=== PATIENT | male | born 1990 | race Caucasian/White ===

== ENCOUNTER 2020-09-24 19:38 | Emergency (ER) | payer OTHER, SELFPAY ==
[2020-09-24 19:42] VITALS: BP 143/96; PULSE 97; RESP 18; TEMP 36.7; O2SAT 98; BMI 43.2
--- NOTE | 2020-09-24 19:46 | PC.NURSE ---
DR MARTÍNEZ AND ISAURO WHITE AT BEDSIDE TO EVAL PATIENT.
--- NOTE | 2020-09-24 20:21 | XR_ITS ---
EXAMINATION: XR FOREARM, RIGHT XR WRIST, RIGHT CLINICAL INFORMATION: Fall. COMPARISON: None TECHNIQUE: AP and lateral views of the right forearm. AP, oblique, lateral, and scaphoid views of the right wrist. FINDINGS: Right forearm: No fracture or dislocation. Mild joint space narrowing with small marginal osteophytes at the elbow. No osseous erosion. No abnormal soft tissue calcification. Right wrist: No acute fracture or dislocation. Normal carpal alignment. No joint space narrowing or marginal osteophytes. No osseous erosion. No abnormal soft tissue calcification. XR/XR wrist RT min 3V IMPRESSION: Right forearm: No acute fracture. 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 Right wrist: No acute fracture or dislocation.
--- NOTE | 2020-09-24 20:21 | XR_ITS ---
EXAMINATION: XR RIBS, LEFT CLINICAL INFORMATION: Fall. COMPARISON: Most recent chest radiograph dated 08/17/2019. TECHNIQUE: PA view the chest as well as 3 views of the left ribs. FINDINGS: Lungs are clear. No consolidation, pneumothorax, or pleural effusion. The cardiomediastinal silhouette and pulmonary vasculature are normal. Osseous structures are unremarkable. Ribs are intact. No fractures are identified. XR/XR ribs LT min 3V w CXR1V IMPRESSION: No displaced fracture.
--- NOTE | 2020-09-24 20:21 | XR_ITS ---
EXAMINATION: XR FOREARM, RIGHT XR WRIST, RIGHT CLINICAL INFORMATION: Fall. COMPARISON: None TECHNIQUE: AP and lateral views of the right forearm. AP, oblique, lateral, and scaphoid views of the right wrist. FINDINGS: Right forearm: No fracture or dislocation. Mild joint space narrowing with small marginal osteophytes at the elbow. No osseous erosion. No abnormal soft tissue calcification. Right wrist: No acute fracture or dislocation. Normal carpal alignment. No joint space narrowing or marginal osteophytes. No osseous erosion. No abnormal soft tissue calcification. XR/XR forearm RT 2V IMPRESSION: Right forearm: No acute fracture. 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 Right wrist: No acute fracture or dislocation.
--- NOTE | 2020-09-24 21:11 | ED.FALL ---
HPI - Fall General Chief Complaint: Fall Stated Complaint: FALL Time Seen by Provider: 09/24/20 19:44 Source: patient Mode of arrival: ambulatory History of Present Illness HPI Narrative: 30-year-old male presenting to ED complaining of left-sided rib, right forearm, and right wrist pain s/p mechanical fall at [employer]. Reports was in the aisle and foot got caught in metal and fell on left side. Denies symptoms prior to fall. Denies head trauma or LOC, has been ambulatory since incident. Denies was numbness, tingling, headache, vision changes, CP/ SOB, urinary incontinence or retention Related Data Previous Rx's Medication Instructions Recorded cyclobenzaprine 5 mg PO Q8H PRN 5 Days #14 tab 09/24/20 lidocaine [Lidoderm] 1 patch TOPICAL DAILY PRN #30 ea 09/24/20 MDD remove after 12 hours Allergies Allergy/AdvReac Type Severity Reaction Status Date / Time acetaminophen [From TYLENOL] Allergy Unknown SWELLING Verified 09/24/20 19:56 aspirin [ASPIRIN] Allergy Unknown RASH Verified 09/24/20 19:56 ibuprofen [From MOTRIN] Allergy Unknown SWELLING Verified 09/24/20 19:56 SEAFOOD Allergy Unknown ANAPHYLAXIS Uncoded 09/24/20 19:41 Review of Systems Review of Systems: Constitutional: No Weight loss, No Fever, No Chills Cardiovascular: No Chest Pain, No SOB Respiratory: No Cough, +rib pain Gastrointestinal: No Nausea, No Vomiting, No Abdominal pain Genitourinary:, No Dysuria, No Urinary Incontinence, +L Flank Pain Musculoskeletal: +joint pain, No Myalgias, No Joint Swelling Skin: No Skin Lesions, No rash Neuro: No Weakness, No Numbness, No Paresthesias Yes all other systems are reviewed and are negative [facility] Past Medical History Attestation statement: The following information was validated with the patient. Medical History (Updated 09/24/20 @ 21:12 by ISAURO Castro) Asthma HIV (human immunodeficiency virus infection) Social History Social History Advance Directives: No Advance Directives Information Provided: Yes Physical Exam Vital Signs: Vital Signs: Vital Signs Temp Pulse Resp BP Pulse Ox 09/24/20 19:42 98.0 F 97 18 143/96 H 98 Body Mass Index 43.2 Const: General: cooperative and healthy appearing Orientation/consciousness: patient oriented x3 Limitations: no limitations HENMT: Head: Yes normal to inspection Ears: hearing grossly normal bilaterally General nose exam: Normal external nose present Face and sinus: Yes normal facial exam Eyes: General: appearance normal, both eyes and all related structures EOM: EOMs intact bilaterally Neck: Other: no midline cervical spinous tenderness Neck: Yes normal visual inspection, Yes full ROM and Yes no meningeal signs Chest: Chest palpation & inspection: normal inspection of the chest, no crepitus and tenderness (L lower anterior and posterior ribs) rib Resp: Effort & Inspection: normal respiratory effort Cardio: Rate: regular rate GI: Inspection: Yes normal to inspection Palpation (GI): Soft to palpation, nontender, no guarding and not rigid Back/Spine/Pelvis: Other: no midline thoracic/ lumbar spinous tenderness. pelvis stable/nontender Skin: Rashes: no rashes Wounds: no wounds Neuro: General: patient oriented x3 and no meningeal signs Gait exam (Neuro): Normal gait present Extrem: Other: +ttp to right forearm and wrist > ulnar aspect. No snuffbox tenderness. No deformities/erythema or ecchymosis. FROM & NV Intact General: Yes normal to inspection Course Course Course Narrative: - x-rays unremarkable Discharge Plan Discharge Clinical Impression: Pain in rib, Wrist pain, acute, Fall Patient Disposition: Home, Self-Care Additional Instructions: your x-rays were unremarkable today in the ED Flexeril as a muscle relaxer, take at night as makes you drowsy, do not drive, drink alcohol, or operate machinery while taking it Lidoderm patches or numbing patches, apply to painful area Apply ice tonight, then likely he will be more beneficial for you Follow-up with her primary care doctor as needed If pain persists or worsens/ becomes unbearable return to the ED Prescriptions: New lidocaine [Lidoderm] 5 % adhesive patch,medicated 1 patch topical DAILY MDD remove after 12 hours PRN (Reason: pain) Qty: 30 RF: 0 cyclobenzaprine 5 mg tablet 5 mg PO Q8H PRN (Reason: pain (scale score 7-10)) 5 Days Qty: 14 RF: 0 Referrals: Ti Guthrie MD [Primary Care Provider] - 2 days (your PCP)
[2020-09-24] MEDS: Lidocaine 4 % Patch ADH..PATCH 1 PATCH TRANSDERMA (21:21)
[2020-09-24] MEDS: Cyclobenzaprine HCl 5 MG TABLET PO (21:21)
== END 2020-09-24 21:29 | disposition home or self-care (01) ==
PROVIDERS: Emergency Provider Internal Medicine; PCP Internal Medicine
DX: S69.91XA Unspecified injury of right wrist, hand and finger(s), initial encounter (principal); R07.81 Pleurodynia; M79.631 Pain in right forearm; M25.531 Pain in right wrist; W01.0XXA Fall on same level from slipping, tripping and stumbling without subsequent striking against object, initial encounter; Y93.01 Activity, walking, marching and hiking; Y92.512 Supermarket, store or market as the place of occurrence of the external cause; Y99.9 Unspecified external cause status; Z79.899 Other long term (current) drug therapy
CPT/HCPCS: 71101; 73090; 73110; 99284

== ENCOUNTER 2020-12-04 15:42 | Outpatient (REF) | payer OTHER, SELFPAY | END 2020-12-04 15:43 | disposition home or self-care (01) | LOC: HO.LAB 15:42 | PROVIDERS: Visit Provider Internal Medicine | DX: Z20.822 Contact with and (suspected) exposure to COVID-19 (principal) | CPT/HCPCS: 36415; C9803; U0003 ==

== ENCOUNTER 2022-03-29 19:51 | Emergency (ER) | payer OTHER, SELFPAY ==
--- NOTE | ~2022-03-29 | XR_ITS ---
EXAMINATION: XR CHEST CLINICAL INFORMATION: Chest pain COMPARISON: None TECHNIQUE: Frontal view of the chest was obtained. FINDINGS: No significant abnormality is noted involving the heart, lungs, mediastinum, bony thorax or soft tissues. XR/XR chest 1V IMPRESSION: Unremarkable chest examination.
--- NOTE | 2022-03-29 19:53 | ECG_ITS ---
Test Reason : CP Blood Pressure : / mmHG Vent. Rate : 099 BPM Atrial Rate : 099 BPM P-R Int : 178 ms QRS Dur : 092 ms QT Int : 362 ms P-R-T Axes : 042 -32 012 degrees QTc Int : 464 ms Normal sinus rhythm Left axis deviation Possible Anterolateral infarct , age undetermined Abnormal ECG When compared with ECG of 20-JUN-2018 17:31, No significant change was found Referred By: Generic ED Physician Electronically Signed By:Edward Barnhart
[2022-03-29 21:16] VITALS: BP 129/84; PULSE 99; RESP 16; TEMP 37; O2SAT 100; BMI 43.2
[2022-03-29 22:08] LABS: Hemoglobin 13.1 g/dl (14.0-18.0); SCAN SMEAR FLAG 1
[2022-03-29 22:10] LABS: Basophils Percent Auto 0.4 % (0-2); Eosinophils Percent Auto 0.4 % (0-4); Hematocrit 39.6 % (42.0-52.0); Imm Gran Abs Auto 0.01 X10*3/uL (0.00-0.03); Imm Gran Pct Auto 0.4 % (0.0-0.4); Lymphocytes Absolute Auto 1.8 X10*3/uL (1.2-4.9); Lymphocytes Percent Auto 64.3 % (20-40); MANUAL DIFF FLAG SCAN; Mean Corpuscular HGB Conc 33.1 g/dl (31.0-36.0); Mean Corpuscular Volume 87.6 fL (80.0-98.0); Monocytes Absolute Auto 0.2 X10*3/uL (0.1-1.2); Monocytes Percent Auto 5.5 % (2-11); NRBC Pct Auto 0.7 /100WBC (0.0-0.2); Neutrophils Absolute Auto 0.8 x10*3/uL (2.0-8.3); Red Blood Count 4.52 X10*6/uL (4.60-5.80); Red Cell Distribution Width 17.3 % (11.0-16.0); White Blood Count 2.7 X10*3/uL (4.8-10.8)
[2022-03-29 22:22] LABS: Anion Gap 11 (12-20); Blood Urea Nitrogen 11 mg/dL (9-16); Calcium 8.6 mg/dL (8.4-10.2); Carbon Dioxide 21 mmol/L (22-29); Chloride 106 mmol/L (96-108); Creatinine Clr Calc Pharmacy 148.4; Estimated Glomerular Filt Rate > 60; Glucose Random 130 mg/dL (60-115); Potassium 4.3 mmol/L (3.3-5.1); Sodium 134 mmol/L (135-145)
[2022-03-29 22:25] VITALS: BP 151/91; PULSE 85; RESP 20; TEMP 36.9; O2SAT 99
[2022-03-29 22:26] LABS: PLT ABN DIST 1; Platelet Count 69 X10*3/uL (160-400)
[2022-03-29 22:28] LABS: SLIDE REVIEW VERIFIED
[2022-03-29 22:35] LABS: Troponin-I High Sensitivity < 3.5 ng/L (<3.5-35.0)
--- NOTE | 2022-03-29 23:16 | ED_ITS ---
HPI - Chest Pain General Chief Complaint: Chest Pain Stated Complaint: Chest pain Time Seen by Provider: 03/30/22 00:47 Source: patient Mode of arrival: ambulatory Limitations: no limitations History of Present Illness HPI narrative: 32-year-old male presents with several episodes of sharp chest pain while breathing today and increased thirst. MD complaint: chest pain Onset (ago): hour(s) (Several hours prior to arrival) Timing of current episode: episodic and now resolved Prior episodes: No Onset: during rest Pain location: substernal Severity: mild Quality: sharp Relieving factors: nothing Exacerbating factors: nothing Treatment prior to arrival: none Related Data Previous Rx's Medication Instructions Recorded cyclobenzaprine 5 mg tablet 5 mg PO Q8H PRN 5 Days #14 tab 09/24/20 lidocaine 5 % topical patch 1 patch TOPICAL DAILY PRN #30 ea 09/24/20 (Lidoderm) MDD remove after 12 hours Allergies Allergy/AdvReac Type Severity Reaction Status Date / Time acetaminophen [From TYLENOL] Allergy Unknown SWELLING Verified 03/29/22 21:19 aspirin [ASPIRIN] Allergy Unknown RASH Verified 03/29/22 21:19 ibuprofen [From MOTRIN] Allergy Unknown SWELLING Verified 03/29/22 21:19 SEAFOOD Allergy Unknown ANAPHYLAXIS Uncoded 09/24/20 19:41 Review of Systems Review of Systems: Constitutional: No Weight loss, No Fever, No Chills, No Night Sweats, No Fati lucio, No Malaise ENT/Mouth: No Hearing loss, No Ear Pain, No Nasal Congestion, No Sinus Pain, No Hoarseness, No sore throat, No Rhinorrhea, No Swallowing Difficulty Eyes: No Eye Pain, No Swelling, No Redness, No Foreign Body, No Discharge, No Vision Changes Cardiovascular: Positive Chest Pain, no SOB, no Dyspnea on Exertion, No Orthopnea, No Edema, No Palpitations Respiratory: No Cough, No Sputum, No Wheezing, No Smoke Exposure, No Dyspnea Gastrointestinal: No Nausea, No Vomiting, No Diarrhea, No abdominal Pain, No Hematochezia, No Melena Genitourinary: No irregular bleeding, No Dysuria, No Urinary Frequency, No Hematuria, No Urinary Incontinence, No Urgency, No Flank Pain, No Urinary Flow Changes, No Hesitancy Musculoskeletal: No joint pain, No Myalgias, No Joint Swelling Skin: No Skin Lesions, No rash Neuro: No Weakness, No Numbness, No Paresthesias, No Loss of Consciousness, No Dizziness, No Headache Psych: No Anxiety/Panic, No Depression, No SI/HI/AH/VH Heme/Lymph: No Bruising, No Bleeding,No Lymphadenopathy Endocrine: No Polyuria, No Polydipsia, No Temperature Intolerance Yes all other systems are reviewed and are negative [facility], [facility] Past Medical History Attestation statement: The following information was validated with the patient. Source: old records reviewed Medical History Asthma HIV (human immunodeficiency virus infection) Social History Social History Alcohol intake: never Patient Tobacco Use Status: Never used Tobacco Use of substances other than those prescribed or required for medical reasons: Yes Substance Use Type: Marijuana Advance Directives: No Advance Directives Information Provided: Yes Physical Exam Vital Signs: Vital Signs: Last Vital Signs Temp 98.4 F 03/29/22 22:25 Pulse 85 03/29/22 22:25 Resp 20 03/29/22 22:25 BP 151/91 H 03/29/22 22:25 Pulse Ox 99 03/29/22 22:25 BMI result Body Mass Index 43.2 Appearance: Alert. Oriented X3. No acute distress. Eyes: Pupils equal, round and reactive to light. ENT: Pharynx normal. Neck: Normal inspection. Neck supple. CVS: Normal heart rate and rhythm. Pulses normal. Respiratory: No respiratory distress. Breath sounds normal. Abdomen: Soft and nontender. Obese. Skin: Skin warm and dry. Normal skin color. Normal skin turgor. Extremities: No lower extremity edema. Gait well-balanced well coordinated. Neuro: No motor deficit. No sensory deficit. Cranial nerves 2-12 intact. Course Course Course Narrative: 32-year-old male presents with intermittent sharp chest pain on inspiration t hat occurred today. No other history of DVT or coronary artery disease. 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 Labs EKGs completed in the emergency department waiting room. Labs are per his baseline, EKG is normal sinus. 01:48 COVID and influenza are negative. Plan of care is to discharge home with follow-up with primary care physician. Patient verbalized understanding of and agrees to plan of care to discharge home. Verbalized understanding of signs and symptoms indicating need for emergent intervention MDM - Chest Pain Differential Diagnosis Differential diagnosis: Likely fracture of rib, pneumothorax, unstable angina pectoris, atypical chest pain, st elevation myocardial infarction, chest pain and biliary colic Medical Records Data Attestation: I reviewed the patient's medical records. Lab Data Attestation: I reviewed the patient's lab results. Result diagrams: 03/29/22 21:57 03/29/22 21:57 Labs: Lab Results 03/29/22 03/29/22 03/29/22 Range/Units 21:57 21:57 21:57 WBC 2.7 L (4.8-10.8) X10*3/uL RBC 4.52 L (4.60-5.80) X10*6/uL Hgb 13.1 L (14.0-18.0) g/dl Hct 39.6 L (42.0-52.0) % MCV 87.6 (80.0-98.0) fL MCH 29.0 (27.0-33.0) pg MCHC 33.1 (31.0-36.0) g/dl RDW 17.3 H (11.0-16.0) % Plt Count 69 L (160-400) X10*3/uL MPV Not Reportable Immature Gran % (Auto) 0.4 (0.0-0.4) % Neut % (Auto) 29.0 L (45-73) % Lymph % (Auto) 64.3 H (20-40) % [place] % (Auto) 5.5 (2-11) % Eos % (Auto) 0.4 (0-4) % Baso % (Auto) 0.4 (0-2) % Lymph # (Auto) 1.8 (1.2-4.9) X10*3/uL [place] # (Auto) 0.2 (0.1-1.2) X10*3/uL Eos # (Auto) 0.0 (0.0-0.4) X10*3/uL Baso # (Auto) 0.0 (0.0-0.2) X10*3/uL Abs Immat Gran (auto) 0.01 (0.00-0.03) X10*3/uL Absolute Neuts (auto) 0.8 L (2.0-8.3) x10*3/uL Absolute Nucleated RBC 0.020 H (0.0-0.012) X10*3/uL Nucleated RBC % (auto) 0.7 H (0.0-0.2) /100WBC Smear Tech's Comments VERIFIED Sodium 134 L (135-145) mmol/L Potassium 4.3 (3.3-5.1) mmol/L Chloride 106 (96-108) mmol/L Carbon Dioxide 21 L (22-29) mmol/L Anion Gap 11 L (12-20) BUN 11 (9-16) mg/dL Creatinine 0.85 (0.5-1.4) mg/dL Estim Creat Clear Calc 148.4 Estimated GFR > 60 Random Glucose 130 H (60-115) mg/dL Calcium 8.6 (8.4-10.2) mg/dL Troponin I High Sens < 3.5 (<3.5-35.0) ng/L COVID-19 (TREE) (Negative) COVID-19 Clin Com Influenza Type A (OSNYA) (Negative) Influenza Type B (SONYA) (Negative) Influenza A & B Note 03/30/22 03/30/22 Range/Units 00:58 00:58 WBC (4.8-10.8) X10*3/uL RBC (4.60-5.80) X10*6/uL Hgb (14.0-18.0) g/dl Hct (42.0-52.0) % MCV (80.0-98.0) fL MCH (27.0-33.0) pg MCHC (31.0-36.0) g/dl RDW (11.0-16.0) % Plt Count (160-400) X10*3/uL MPV Immature Gran % (Auto) (0.0-0.4) % Neut % (Auto) (45-73) % Lymph % (Auto) (20-40) % [place] % (Auto) (2-11) % Eos % (Auto) (0-4) % Baso % (Auto) (0-2) % Lymph # (Auto) (1.2-4.9) X10*3/uL [place] # (Auto) (0.1-1.2) X10*3/uL Eos # (Auto) (0.0-0.4) X10*3/uL Baso # (Auto) (0.0-0.2) X10*3/uL Abs Immat Gran (auto) (0.00-0.03) X10*3/uL Absolute Neuts (auto) (2.0-8.3) x10*3/uL Absolute Nucleated RBC (0.0-0.012) X10*3/uL Nucleated RBC % (auto) (0.0-0.2) /100WBC Smear Tech's Comments Sodium (135-145) mmol/L Potassium (3.3-5.1) mmol/L Chloride (96-108) mmol/L Carbon Dioxide (22-29) mmol/L Anion Gap (12-20) BUN (9-16) mg/dL Creatinine (0.5-1.4) mg/dL Estim Creat Clear Calc Estimated GFR Random Glucose (60-115) mg/dL Calcium (8.4-10.2) mg/dL Troponin I High Sens (<3.5-35.0) ng/L COVID-19 (TREE) Negative (Negative) COVID-19 Clin Com See Note Influenza Type A (SONYA) Negative (Negative) Influenza Type B (SONYA) Negative (Negative) Influenza A & B Note See Note Imaging Data Chest x-ray: Attestation: I personally reviewed and interpreted this imaging study as follows: Radiologist's impression: EXAMINATION: XR CHEST CLINICAL INFORMATION: Chest pain COMPARISON: None TECHNIQUE: Frontal view of the chest was obtained. FINDINGS: No significant abnormality is noted involving the heart, lungs, mediastinum, bony thorax or soft tissues. XR/XR chest 1V IMPRESSION: Unremarkable chest examination. ? ECG Data ECG #1: Attestation: I personally reviewed and interpreted this ECG as follows: ECG interpretation date: 03/29/22 ECG interpretation time: 20:01 Prior ECG tracings: available for review Interpretation: Vent. rate [address] interval 178 ms QRS duration 92 ms QT/QTc 362/464 ms P-R-T axes 42 -32 12 Normal sinus rhythm Left axis deviation Possible Anterolateral infarct , age undetermined Abnormal ECG When compared with ECG of 20-JUN-2018 17:31, No significant change was found Discharge Plan Discharge Clinical Impression: Chest pain, Costalchondritis Patient Disposition: Home, Self-Care Instructions: Costochondritis (ED), Noncardiac Chest Pain (ED) Additional Instructions: You were evaluated for an episode of sharp chest pain. X-rays negative for acute findings. EKG shows no acute findings. Lab values are your normal baseline values. Please follow-up with primary care physician. Thank you for choosing this emergency department for evaluation. Please follow-up with primary care physician as needed. Return to the emergency department for any new, concerning, or worsening symptoms. Prescriptions: No Action lidocaine [Lidoderm] 5 % adhesive patch,medicated 1 patch topical DAILY MDD remove after 12 hours PRN (Reason: pain) Qty: 30 0RF Rx Instructions: leave on most painful area for up to 12 hrs cyclobenzaprine 5 mg tablet 5 mg PO Q8H PRN (Reason: pain (scale score 7-10)) 5 Days Qty: 14 0RF Referrals: Ti Guthrie MD [Primary Care Provider] -
[2022-03-30 01:35] LABS: COVID-19 Test Negative (Negative); IDNOW Serial# 16C4AD1C; Influenza A Negative (Negative); Influenza B2 Negative (Negative)
[2022-03-30] MEDS: Albuterol Sulfate 90 MCG 8 GM INHALER 2 PUFF INHALE (01:55)
[2022-03-30 02:23] VITALS: BP 123/72; PULSE 84; RESP 16; TEMP 37; O2SAT 99
[2022-03-30] MEDS: oxyCODONE HCl Immed Release 5 MG TABLET PO (02:43)
== END 2022-03-30 02:44 | disposition home or self-care (01) ==
PROVIDERS: Nurse Practitioner Family; Emergency Provider Emergency Medicine Emergency Medical Services; PCP Internal Medicine
DX: M94.0 Chondrocostal junction syndrome [Tietze] (principal); J45.909 Unspecified asthma, uncomplicated; Z21 Asymptomatic human immunodeficiency virus [HIV] infection status
CPT/HCPCS: 36415; 71045; 80048; 84484; 85025; 87502; 87635; 93005; 99284; 99285

== ENCOUNTER 2022-06-20 18:34 | Emergency (ER) | payer OTHER, SELFPAY ==
--- NOTE | 2022-06-20 18:56 | ECG_ITS ---
Test Reason : CHEST PAIN Blood Pressure : / mmHG Vent. Rate : 092 BPM Atrial Rate : 092 BPM P-R Int : 178 ms QRS Dur : 090 ms QT Int : 370 ms P-R-T Axes : 006 -37 002 degrees QTc Int : 457 ms Normal sinus rhythm Left axis deviation Borderline ECG When compared with ECG of 29-MAR-2022 20:01, No significant change was found Referred By: Generic ED Physician Electronically Signed By:YURY STONE
[2022-06-20 20:03] VITALS: BP 148/59; PULSE 88; RESP 18; TEMP 36.6; O2SAT 98; BMI 46.2
--- NOTE | 2022-06-21 01:08 | ED.GENADULT ---
HPI - General Adult General Chief complaint: General Medical Stated complaint: chest pain, diarrhea Time Seen by Provider: 06/21/22 01:08 Source: patient Mode of arrival: ambulatory Limitations: no limitations History of Present Illness HPI narrative: Pain history of constipation noticed bright red blood on the stool when strained also complaining of chronic low back pain no history of trauma. Patient also complaining of rectal pain. No history of hemorrhoids in the past Related Data Previous Rx's Medication Instructions Recorded cyclobenzaprine 5 mg tablet 5 mg PO Q8H PRN pain (scale score 09/24/20 7-10) 5 days #14 tabs lidocaine 5 % topical patch 1 patch topical DAILY PRN pain #30 09/24/20 (Lidoderm) ea hydrocortisone acetate 25 mg 25 mg MS BID #12 ea 06/21/22 rectal suppository (Anusol-HC) polyethylene glycol 3350 17 17 g PO DAILY #510 grams 06/21/22 gram/dose oral powder (Miralax) tramadol 50 mg tablet 50 mg PO Q6H PRN pain #15 tabs 06/21/22 Allergies Allergy/AdvReac Type Severity Reaction Status Date / Time acetaminophen [From TYLENOL] Allergy Unknown SWELLING Verified 03/29/22 21:19 aspirin [ASPIRIN] Allergy Unknown RASH Verified 03/29/22 21:19 ibuprofen [From MOTRIN] Allergy Unknown SWELLING Verified 03/29/22 21:19 SEAFOOD Allergy Unknown ANAPHYLAXIS Uncoded 09/24/20 19:41 Review of Systems Review of Systems: Yes all other systems are reviewed and are negative PMFSH Past Medical History Medical History Asthma HIV (human immunodeficiency virus infection) Social History Social History Alcohol intake: never Patient Tobacco Use Status: Never used Tobacco Substance Use Type: Marijuana Advance Directives: No Advance Directives Information Provided: Yes Physical Exam ED Vital Signs: Vital Signs - 24 hr 06/20/22 20:03 Temperature 97.8 F Pulse Rate 88 Respiratory Rate 18 Blood Pressure 148/59 H Pulse Oximetry 98 Oxygen Delivery Method Room Air BMI result Body Mass Index 46.2 Appearance: Alert. Oriented X3. No acute distress. Eyes: No pallor ENT: Pharynx normal. Oral Mucosa moist Neck: Normal inspection. Neck supple. CVS: Normal heart rate and rhythm. Pulses normal. Respiratory: No respiratory distress. Equal air entry bilateral, Abdomen: Soft and nontender. Bowel sounds are present, no mass palpable, no CVA tenderness Rectal: No external hemorrhoid felt brown stool no blood Skin: Skin warm and dry. Normal skin color. Normal skin turgor. back: Diffuse lower lumbar tenderness no skin changes , patient able to ambulate without any distress SLR negative bilateral Extremities: No lower extremity edema. No calf tenderness Neuro: Oriented X 3. No motor deficit. Discharge Plan Discharge Clinical Impression: Hemorrhoids Patient Disposition: Home, Self-Care Instructions: Hemorrhoids (ED) Additional Instructions: Avoid constipation Suppository twice daily as advised Pain medication for chronic back pain Prescriptions: New tramadol 50 mg tablet 50 mg PO Q6H PRN (Reason: pain) Qty: 15 0RF polyethylene glycol 3350 [Miralax] 17 gram/dose powder 17 g PO DAILY Qty: 510 0RF hydrocortisone acetate [Anusol-HC] 25 mg suppository 25 mg MS BID Qty: 12 0RF No Action lidocaine [Lidoderm] 5 % adhesive patch,medicated 1 patch topical DAILY MDD remove after 12 hours PRN (Reason: pain) Qty: 30 0RF Rx Instructions: leave on most painful area for up to 12 hrs cyclobenzaprine 5 mg tablet 5 mg PO Q8H PRN (Reason: pain (scale score 7-10)) 5 Days Qty: 14 0RF
[2022-06-21] MEDS: traMADoL HCL 50 MG TABLET PO (01:38)
[2022-06-21 01:51] VITALS: BP 136/70; PULSE 82; TEMP 37.1; O2SAT 97
== END 2022-06-21 01:45 | disposition home or self-care (01) ==
PROVIDERS: Emergency Provider Internal Medicine
DX: K64.9 Unspecified hemorrhoids (principal); K59.00 Constipation, unspecified; G89.29 Other chronic pain; M54.50 Low back pain, unspecified; B20 Human immunodeficiency virus [HIV] disease; F12.90 Cannabis use, unspecified, uncomplicated
CPT/HCPCS: 93005; 99283; 99284

== ENCOUNTER 2022-06-29 23:19 | Emergency (ER) | payer OTHER, SELFPAY ==
[2022-06-29 23:22] VITALS: BP 142/79; PULSE 97; RESP 14; TEMP 36.9; O2SAT 98; BMI 41.9
[2022-06-29 23:49] LABS: Hematocrit 37.3 % (42.0-52.0); Imm Gran Abs Auto 0.01 X10*3/uL (0.00-0.03); Mean Corpuscular Volume 87.4 fL (80.0-98.0); PLT ABN DIST 1; Red Blood Count 4.27 X10*6/uL (4.60-5.80); SCAN SMEAR FLAG 1
[2022-06-29 23:51] LABS: Basophils Percent Auto 0.7 % (0-2); Eosinophils Percent Auto 0.3 % (0-4); Hemoglobin 12.5 g/dl (14.0-18.0); Imm Gran Pct Auto 0.3 % (0.0-0.4); Lymphocytes Absolute Auto 1.7 X10*3/uL (1.2-4.9); Lymphocytes Percent Auto 57.8 % (20-40); Mean Corpuscular HGB Conc 33.5 g/dl (31.0-36.0); Mean Corpuscular Hemoglobin 29.3 pg (27.0-33.0); Monocytes Absolute Auto 0.2 X10*3/uL (0.1-1.2); Monocytes Percent Auto 5.6 % (2-11); Neutrophils Percent Auto 35.3 % (45-73); Platelet Count 71 X10*3/uL (160-400); Red Cell Distribution Width 17.3 % (11.0-16.0); White Blood Count 2.9 X10*3/uL (4.8-10.8)
[2022-06-29 23:52] LABS: MANUAL DIFF FLAG NO
[2022-06-30 00:09] VITALS: BP 136/82; PULSE 86; RESP 18; TEMP 37.6; O2SAT 99
[2022-06-30 00:10] LABS: Alanine Aminotransferase 111 U/L (0-40); Albumin Level 3.1 g/dL (3.5-5.0); Alkaline Phosphatase 149 U/L (39-117); Anion Gap 10 (12-20); Aspartate Amino Transferase 210 U/L (5-37); Bilirubin Direct 3.5 mg/dL (0.0-0.5); Bilirubin Total 4.6 mg/dL (0.0-1.0); Blood Urea Nitrogen 9 mg/dL (9-16); Calcium 8.3 mg/dL (8.4-10.2); Carbon Dioxide 24 mmol/L (22-29); Chloride 106 mmol/L (96-108); Creatinine Clr Calc Pharmacy 173.2; Estimated Glomerular Filt Rate > 60; Glucose Random 113 mg/dL (60-115); Lipase 28 U/L (8-78); Potassium 3.9 mmol/L (3.3-5.1); Sodium 136 mmol/L (135-145); Total Protein 8.2 g/dL (6.5-8.0)
[2022-06-30 03:05] LABS: Appearance Urine CLEAR; Color Urine DK YELLOW; Glucose Urine UA NEG (NEG); Leukocyte Esterase Urine NEG (NEG); Nitrite Urine NEG (NEG); Urine Blood NEG (NEG); Urine Ketones 5 MG/DL (NEG); Urine Protein NEG (NEG-TRACE)
--- NOTE | 2022-06-30 03:25 | ED_ITS ---
HPI - Abdominal Pain General Chief Complaint: Abdominal Pain Stated Complaint: blood in stool Time Seen by Provider: 06/30/22 03:11 Source: patient Mode of arrival: ambulatory Limitations: no limitations History of Present Illness HPI narrative: 32-year-old male who presents emergency department for evaluation of lower abdominal pain, constipation and bloody stool. Patient states that he was seen in the emergency department on 06/21/2022 and diagnosed with hemorrhoids and constipation. He was started on MiraLax and he states that this is not improved his symptoms. He states that he feels constipated has to strain to move his bowels. He states that he only has small bowel movements every 3 days. He states that he has noticed dark red blood when he strains at stool. He is also complaining of lower abdominal pain. He points to his left lower quadrant when asked to localize the pain. He states the pain is a pressure-like which is worse when he tries to move his bowels, the pain is 6/10 at its worst. He denied fever, chills, nausea, vomiting. The patient is HIV positive and states that he is compliant with his medications. 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 Related Data Previous Rx's Medication Instructions Recorded cyclobenzaprine 5 mg tablet 5 mg PO Q8H PRN pain (scale score 09/24/20 7-10) 5 days #14 tabs lidocaine 5 % topical patch 1 patch topical DAILY PRN pain #30 09/24/20 (Lidoderm) ea hydrocortisone acetate 25 mg 25 mg TX BEDTIME #12 ea 06/21/22 rectal suppository (Anusol-HC) polyethylene glycol 3350 17 17 g PO DAILY #510 grams 06/21/22 gram/dose oral powder (Miralax) tramadol 50 mg tablet 50 mg PO Q6H PRN pain #15 tabs 06/21/22 docusate sodium 100 mg capsule 100 mg PO BID 7 days #14 caps 06/30/22 (Colace) lactulose 10 gram/15 mL oral 20 g (30 mL) PO BID 7 days #420 mL 06/30/22 solution phenylephrine 0.25 %-cocoa butter 1 supp TX BID 7 days #24 ea 06/30/22 88.44 % rectal suppository (Preparation H(phenyleph,cocoa buttr)) Allergies Allergy/AdvReac Type Severity Reaction Status Date / Time acetaminophen [From TYLENOL] Allergy Unknown SWELLING Verified 03/29/22 21:19 aspirin [ASPIRIN] Allergy Unknown RASH Verified 03/29/22 21:19 ibuprofen [From MOTRIN] Allergy Unknown SWELLING Verified 03/29/22 21:19 SEAFOOD Allergy Unknown ANAPHYLAXIS Uncoded 09/24/20 19:41 Review of Systems Review of Systems Yes all other systems are reviewed and are negative [facility] Past Medical History [facility] Narrative: Social history: The patient denies tobacco use. He states that he occasionally drinks alcohol. He does smoke marijuana. Medical History Asthma HIV (human immunodeficiency virus infection) Social History Social History Alcohol intake: never Patient Tobacco Use Status: Never used Tobacco Substance Use Type: Marijuana Advance Directives: No Advance Directives Information Provided: No Physical Exam ED Vital Signs: Vital Signs - 24 hr 06/29/22 23:22 06/30/22 00:09 Temperature 98.4 F 99.6 F Pulse Rate 97 86 Respiratory Rate 14 18 Blood Pressure 142/79 H 136/82 Pulse Oximetry 98 99 Oxygen Delivery Method Room Air Room Air BMI result Body Mass Index 41.9 Const General: cooperative and no acute distress Orientation/consciousness: oriented to person and oriented to place Limitations: no limitations HENMT Head: Yes normal to inspection, Yes normocephalic and Yes atraumatic Ears: external ears normal General nose exam: Normal external nose present Face and sinus: Yes normal facial exam Mouth: Normal oral and palatal mucosa present Throat: Yes posterior oropharynx normal Eyes General: appearance normal, both eyes and all related structures Pupils: Equal, round and reactive pupils present Neck Neck: Yes normal visual inspection, Yes no lymphadenopathy, Yes trachea midline and Yes supple Chest Chest palpation & inspection: normal inspection of the chest and normal palpation of entire chest wall Resp Effort & Inspection: normal respiratory effort and able to speak in complete sentences Auscultation: clear to auscultation bilaterally Cardio Rate: regular rate Rhythm: regular rhythm Heart sounds: S1 normal heart sound present, S2 normal heart sound present and no murmurs GI Inspection: Yes normal to inspection Palpation (GI): Soft to palpation, nontender and no guarding Auscultation: normal bowel sounds Rectal Exam - Male: Yes deferred (Patient reports that he had significant pain from previous rectal exam and ) and Yes visual inspection normal General: Yes no CVA tenderness Back/Spine/Pelvis Back: no CVA tenderness Skin General skin exam: no rashes or lesions noted Neuro General: oriented to person and oriented to place Cranial nerves: Yes CN's II-XII intact bilaterally and Yes Equal, round and reactive pupils present Cognition (Neuro): normal cognition Motor exam (neuro): 5/5 motor strength present throughout Extrem General: Yes normal to inspection Psych Appearance: grossly normal Speech and movement: Normal speech and movement present Affect: normal affect Attitude: cooperative Thought process: Normal thought process present Thought content: Normal thought content present Course Course Course Narrative: 32-year-old male who presents emergency department for evaluation of abdominal pain, constipation and blood per rectum when he tries to move his bowels. Vital signs were unremarkable. Abdominal exam revealed no tenderness. Patient d eferred a digital exam but on visual inspection there is no significant abnormalities noted, there are no external hemorrhoids, there are no obvious fissures noted. Laboratory evaluation did reveal a pancytopenia which is chronic and most likely consistent with his HIV disease. The patient however does have LFT abnormalities with elevation in his AST and ALT 210 and 149 as well as an elevated total bilirubin of 4.6 and elevated direct bilirubin of 3.5. This time I do not have a clear etiology for these elevations, but the patient should follow-up with his PCP for further testing. At this time he has no abdominal tenderness. At this time I do believe this patient is constipated and I did advise him to stop taking his MiraLax. Patient was started on lactulose twice a day for 1 week, Colace twice a day for 1 week and preparation H suppositories twice a day for 1 week. He is advised to follow-up with his PCP for repeat LFTs and further evaluation. MDM - Abdominal Pain Lab Data Result diagrams: 06/29/22 23:43 06/29/22 23:43 Labs: Lab Results 06/29/22 06/29/22 06/30/22 Range/Units 23:43 23:43 02:44 WBC 2.9 L (4.8-10.8) X10*3/uL RBC 4.27 L (4.60-5.80) X10*6/uL Hgb 12.5 L (14.0-18.0) g/dl Hct 37.3 L (42.0-52.0) % MCV 87.4 (80.0-98.0) fL MCH 29.3 (27.0-33.0) pg MCHC 33.5 (31.0-36.0) g/dl RDW 17.3 H (11.0-16.0) % Plt Count 71 L (160-400) X10*3/uL MPV Not Reportable Immature Gran % (Auto) 0.3 (0.0-0.4) % Neut % (Auto) 35.3 L (45-73) % Lymph % (Auto) 57.8 H (20-40) % [place] % (Auto) 5.6 (2-11) % Eos % (Auto) 0.3 (0-4) % Baso % (Auto) 0.7 (0-2) % Lymph # (Auto) 1.7 (1.2-4.9) X10*3/uL [place] # (Auto) 0.2 (0.1-1.2) X10*3/uL Eos # (Auto) 0.0 (0.0-0.4) X10*3/uL Baso # (Auto) 0.0 (0.0-0.2) X10*3/uL Abs Immat Gran (auto) 0.01 (0.00-0.03) X10*3/uL Absolute Neuts (auto) 1.0 L (2.0-8.3) x10*3/uL Absolute Nucleated RBC 0.000 (0.0-0.012) X10*3/uL Nucleated RBC % (auto) 0.0 (0.0-0.2) /100WBC Sodium 136 (135-145) mmol/L Potassium 3.9 (3.3-5.1) mmol/L Chloride 106 (96-108) mmol/L Carbon Dioxide 24 (22-29) mmol/L Anion Gap 10 L (12-20) BUN 9 (9-16) mg/dL Creatinine 0.74 (0.5-1.4) mg/dL Estim Creat Clear Calc 173.2 Estimated GFR > 60 Random Glucose 113 (60-115) mg/dL Calcium 8.3 L (8.4-10.2) mg/dL Total Bilirubin 4.6 H (0.0-1.0) mg/dL Direct Bilirubin 3.5 H (0.0-0.5) mg/dL AST 210 H (5-37) U/L ALT 111 H (0-40) U/L Alkaline Phosphatase 149 H (39-117) U/L Total Protein 8.2 H (6.5-8.0) g/dL Albumin 3.1 L (3.5-5.0) g/dL Lipase 28 (8-78) U/L Urine Color DK YELLOW Urine Appearance CLEAR Urine pH 7.0 (5.0-8.0) Ur Specific [place] 1.020 (1.005-1.025) Urine Protein NEG (NEG-TRACE) MG/DL Urine Glucose (UA) NEG (NEG) MG/DL Urine Ketones 5 (NEG) MG/DL Urine Blood NEG (NEG) Urine Nitrite NEG (NEG) Ur Leukocyte Esterase NEG (NEG) Discharge Plan Discharge Clinical Impression: Constipation, Acute lower gastrointestinal bleeding, Abnormal LFTs (liver function tests) Patient Disposition: Home, Self-Care Instructions: Constipation (ED) Additional Instructions: Stop taking the MiraLax. Take lactulose 30 mL twice a day for 7 days. This medication should help with your constipation, if you developed diarrhea then stop this medication. Take Colace stool softener 1 pill twice a day for 7 days. Use the preparation H suppositories, 1 suppository in your rectum twice a day for 7 days. Your liver function tests were elevated compared to your previous studies. You should discuss this with your primary care provider and you should get further testing as an outpatient and repeat testing as well. Follow-up with your doctor in 2 days. Please return to the emergency department if your symptoms get worse or if you develop any symptoms that are concerning to you. Liver function test abnormalities: Total bilirubin 4.6, direct bilirubin 3.5, AST 210, ALT 111, alk-phos 149 Prescriptions: New lactulose 10 gram/15 mL solution 20 g PO BID 7 Days Qty: 420 0RF docusate sodium [Colace] 100 mg capsule 100 mg PO BID 7 Days Qty: 14 0RF Preparation H(pe,cb) 0.25-88.44 % suppository 1 supp [place] BID 7 Days Qty: 24 0RF No Action lidocaine [Lidoderm] 5 % adhesive patch,medicated 1 patch topical DAILY MDD remove after 12 hours PRN (Reason: pain) Qty: 30 0RF Rx Instructions: leave on most painful area for up to 12 hrs cyclobenzaprine 5 mg tablet 5 mg PO Q8H PRN (Reason: pain (scale score 7-10)) 5 Days Qty: 14 0RF tramadol 50 mg tablet 50 mg PO Q6H PRN (Reason: pain) Qty: 15 0RF hydrocortisone acetate [Anusol-HC] 25 mg suppository 25 mg TX BEDTIME Qty: 12 0RF polyethylene glycol 3350 [Miralax] 17 gram/dose powder 17 g PO DAILY Qty: 510 0RF
== END 2022-06-30 04:07 | disposition home or self-care (01) ==
PROVIDERS: Emergency Provider Emergency Medicine Emergency Medical Services
DX: K59.00 Constipation, unspecified (principal); K92.2 Gastrointestinal hemorrhage, unspecified; R79.89 Other specified abnormal findings of blood chemistry; B20 Human immunodeficiency virus [HIV] disease; F12.90 Cannabis use, unspecified, uncomplicated
CPT/HCPCS: 36415; 80053; 81003; 82248; 83690; 85025; 99283; 99284

== ENCOUNTER 2022-07-02 15:37 | Emergency (ER) | payer MEDICAID, SELFPAY ==
[2022-07-02 17:10] VITALS: BP 127/79; PULSE 84; RESP 16; TEMP 36.6; O2SAT 98; BMI 40.4
[2022-07-02 17:37] LABS: MANUAL DIFF FLAG NO
[2022-07-02 17:38] LABS: Monocytes Absolute Auto 0.3 X10*3/uL (0.1-1.2); SCAN SMEAR FLAG 1
[2022-07-02 17:40] LABS: Basophils Percent Auto 0.5 % (0-2); Eosinophils Percent Auto 0.5 % (0-4); Hematocrit 37.6 % (42.0-52.0); Hemoglobin 12.8 g/dl (14.0-18.0); Imm Gran Abs Auto 0.01 X10*3/uL (0.00-0.03); Imm Gran Pct Auto 0.3 % (0.0-0.4); Lymphocytes Absolute Auto 2.2 X10*3/uL (1.2-4.9); Lymphocytes Percent Auto 60.4 % (20-40); Mean Corpuscular Hemoglobin 30.3 pg (27.0-33.0); Mean Corpuscular Volume 89.1 fL (80.0-98.0); Mean Platelet Volume 13.4 fL (9.4-12.4); Monocytes Percent Auto 7.4 % (2-11); Neutrophils Absolute Auto 1.1 x10*3/uL (2.0-8.3); Neutrophils Percent Auto 30.9 % (45-73); Red Blood Count 4.22 X10*6/uL (4.60-5.80); White Blood Count 3.6 X10*3/uL (4.8-10.8)
[2022-07-02 17:49] LABS: PLT ABN DIST 1; Platelet Count 80 X10*3/uL (160-400)
[2022-07-02 18:02] LABS: Anion Gap 13 (12-20); Blood Urea Nitrogen 9 mg/dL (9-16); Calcium 8.3 mg/dL (8.4-10.2); Carbon Dioxide 21 mmol/L (22-29); Chloride 104 mmol/L (96-108); Creatinine Clr Calc Pharmacy 202.4; Estimated Glomerular Filt Rate > 60; Glucose Random 93 mg/dL (60-115); Potassium 3.9 mmol/L (3.3-5.1); Sodium 134 mmol/L (135-145)
[2022-07-02 21:25] VITALS: BP 126/69; PULSE 69; RESP 16; TEMP 36.7; O2SAT 98
--- NOTE | 2022-07-02 22:01 | ED_ITS ---
HPI - General Adult General Chief complaint: General Medical Stated complaint: Constipated Rectal Bleed Time Seen by Provider: 07/02/22 22:00 Source: patient Mode of arrival: ambulatory Limitations: no limitations History of Present Illness HPI narrative: Patient presents to the emergency department for evaluation of rectal pain. He states that he has been having ongoing issues for the past 1 and half weeks with constipation, bloody stools, and hemorrhoids. Initially he trialed MiraLax without much improvement. He was seen in the emergency department 2 days ago for the same complaints. He is straining to move his bowels, and he develops a pressure-like pain to the rectum. He denies fevers, chills, abdominal pain, nausea, vomiting, diarrhea. At this time he states he is taking a pill to help included the bathroom but otherwise is not taking anything else. He states that he thinks he was given additional prescriptions but his insurance plan would not cover it. He is attempting to schedule follow-up visit with new primary care provider but has not yet made an appointment. Related Data Previous Rx's Medication Instructions Recorded cyclobenzaprine 5 mg tablet 5 mg PO Q8H PRN pain (scale score 09/24/20 7-10) 5 days #14 tabs lidocaine 5 % topical patch 1 patch topical DAILY PRN pain #30 09/24/20 (Lidoderm) ea hydrocortisone acetate 25 mg 25 mg MD BEDTIME #12 ea 06/21/22 rectal suppository (Anusol-HC) polyethylene glycol 3350 17 17 g PO DAILY #510 grams 06/21/22 gram/dose oral powder (Miralax) tramadol 50 mg tablet 50 mg PO Q6H PRN pain #15 tabs 06/21/22 docusate sodium 100 mg capsule 100 mg PO BID 7 days #14 caps 06/30/22 (Colace) lactulose 10 gram/15 mL oral 20 g (30 mL) PO BID 7 days #420 mL 06/30/22 solution phenylephrine 0.25 %-cocoa butter 1 supp MD BID 7 days #24 ea 06/30/22 88.44 % rectal suppository (Preparation H(phenyleph,cocoa buttr)) hydrocortisone 1 %-pramoxine 1 % 1 appl MD QID PRN hemorrhoids #10 07/02/22 rectal foam grams Allergies Allergy/AdvReac Type Severity Reaction Status Date / Time acetaminophen [From TYLENOL] Allergy Unknown SWELLING Verified 07/02/22 17:10 aspirin [ASPIRIN] Allergy Unknown RASH Verified 03/29/22 21:19 ibuprofen [From MOTRIN] Allergy Unknown SWELLING Verified 03/29/22 21:19 SEAFOOD Allergy Unknown ANAPHYLAXIS Uncoded 09/24/20 19:41 Review of Systems Review of Systems: Constitutional: No weight loss. No fever. No chills. No weakness. No fatigue. Skin: No rash. No itching. Cardiovascular: No chest pain. No chest pressure. No palpitations. No pedal edema. Respiratory: No shortness of breath. No cough. No sputum production. Gastrointestinal: No anorexia. No nausea. No vomiting. No diarrhea. No abdominal pain. Positive constipation. Positive blood in stool. Genitourinary: No burning micturition. No urinary frequency. No incontinence. Musculoskeletal: No muscle pain. No back pain. No joint pain. No stiffness. Lymphatics: No enlarged lymph nodes. Psychiatric:No depression. No anxiety. Yes all other systems are reviewed and are negative [facility] Past Medical History Attestation statement: The following information was validated with the patient. Source: old records reviewed Medical History Asthma HIV (human immunodeficiency virus infection) Social History Social History Alcohol intake: never Patient Tobacco Use Status: Never used Tobacco Substance Use Type: Marijuana Advance Directives: No Advance Directives Information Provided: No Physical Exam ED Vital Signs: Vital Signs - 24 hr 07/02/22 17:10 07/02/22 21:25 07/02/22 22:53 Temperature 97.9 F 98.1 F 98.4 F Pulse Rate 84 69 73 Respiratory Rate 16 16 16 Blood Pressure 127/79 126/69 126/84 Pulse Oximetry 98 98 98 Oxygen Delivery Method Room Air Room Air Room Air BMI result Body Mass Index 40.4 Vital signs have been reviewed as normal and appeared to be correct. Blood pressure normal.? Heart rate normal.? Respiration rate normal. Temperature normal.? Oxygen saturation normal. Appearance: Alert.?Oriented to person, place and time. No acute distress.?Normal affect. Eyes: Pupils equal, round and reactive to light.? ENT: Pharynx normal.?? Neck: Normal inspection.? Neck supple.?? CVS: Heart sounds normal. Normal heart rate and rhythm.? Pulses normal.?? Respiratory: No respiratory distress.? Lung sounds clear to auscultation bilaterally?? Abdomen: Soft and non-tender. Normoactive bowel sounds. Declined rectal exam Skin: Skin warm and dry.? Normal skin color.? Extremities: No lower extremity edema.? Neuro: Moves all extremities spontaneously. Sensation intact bilaterally. No motor deficits Ambulates with normal steady gait. Course Course Course Narrative: Patient 32-year-old male with a past medical history of asthma, and HIV. He presents emergency department for evaluation of constipation, rectal pain with bleeding. States he is currently being treated for hemorrhoids. He declined digital rectal exam or visual inspection to be performed as previous exams have been painful. CBC reveals pancytopenia consistent with prior labs. BMP overall unremarkable. Currently he is only taking what sounds like Colace for his constipation. States he is not taking lactulose or preparation H suppositories, reportedly not covered by his insurance. He is requesting something for his rectal pain. Will send prescription to pharmacy for hydrocortisone pramoxine foam which appears to be covered by his insurance, also provided with [id number] remedies. Medical Decision Making Medical Records Medical records reviewed: Yes I reviewed the patient's medical records. Lab Data Lab results reviewed: Yes I reviewed the patient's lab results. Result diagrams: 07/02/22 17:17 07/02/22 17:17 Labs: Lab Results 07/02/22 07/02/22 Range/Units 17:17 17:17 WBC 3.6 L (4.8-10.8) X10*3/uL RBC 4.22 L (4.60-5.80) X10*6/uL Hgb 12.8 L (14.0-18.0) g/dl Hct 37.6 L (42.0-52.0) % MCV 89.1 (80.0-98.0) fL MCH 30.3 (27.0-33.0) pg MCHC 34.0 (31.0-36.0) g/dl RDW 18.0 H (11.0-16.0) % Plt Count 80 L (160-400) X10*3/uL MPV 13.4 H (9.4-12.4) fL Immature Gran % (Auto) 0.3 (0.0-0.4) % Neut % (Auto) 30.9 L (45-73) % Lymph % (Auto) 60.4 H (20-40) % [place] % (Auto) 7.4 (2-11) % Eos % (Auto) 0.5 (0-4) % Baso % (Auto) 0.5 (0-2) % Lymph # (Auto) 2.2 (1.2-4.9) X10*3/uL [place] # (Auto) 0.3 (0.1-1.2) X10*3/uL Eos # (Auto) 0.0 (0.0-0.4) X10*3/uL Baso # (Auto) 0.0 (0.0-0.2) X10*3/uL Abs Immat Gran (auto) 0.01 (0.00-0.03) X10*3/uL Absolute Neuts (auto) 1.1 L (2.0-8.3) x10*3/uL Absolute Nucleated RBC 0.000 (0.0-0.012) X10*3/uL Nucleated RBC % (auto) 0.0 (0.0-0.2) /100WBC Sodium 134 L (135-145) mmol/L Potassium 3.9 (3.3-5.1) mmol/L Chloride 104 (96-108) mmol/L Carbon Dioxide 21 L (22-29) mmol/L Anion Gap 13 (12-20) BUN 9 (9-16) mg/dL Creatinine 0.62 (0.5-1.4) mg/dL Estim Creat Clear Calc 202.4 Estimated GFR > 60 Random Glucose 93 (60-115) mg/dL Calcium 8.3 L (8.4-10.2) mg/dL Discharge Plan Discharge Clinical Impression: Hemorrhoids Patient Disposition: Home, Self-Care Instructions: Hemorrhoids (ED) Additional Instructions: A new prescription was sent to your pharmacy for a rectal foam, this is sprayed to the anus 4 times daily as needed for pain. If this is not covered by your insurance, you can purchase [id number] medications such as Proctofoam, witch Delilah, tuckd, preparation H pads, [place] cream, preparation H cream, Anusol cream. Please contact your primary care provider and arrange for a follow-up visit within 2 days. Return to the emergency department any new or significantly worsening symptoms or concerns. Prescriptions: New hydrocortisone-pramoxine 1-1 % foam 1 appl MD QID PRN (Reason: hemorrhoids) Qty: 10 0RF No Action lidocaine [Lidoderm] 5 % adhesive patch,medicated 1 patch topical DAILY MDD remove after 12 hours PRN (Reason: pain) Qty: 30 0RF Rx Instructions: leave on most painful area for up to 12 hrs cyclobenzaprine 5 mg tablet 5 mg PO Q8H PRN (Reason: pain (scale score 7-10)) 5 Days Qty: 14 0RF lactulose 10 gram/15 mL solution 20 g PO BID 7 Days Qty: 420 0RF docusate sodium [Colace] 100 mg capsule 100 mg PO BID 7 Days Qty: 14 0RF Preparation H(pe,cb) 0.25-88.44 % suppository 1 supp MD BID 7 Days Qty: 24 0RF tramadol 50 mg tablet 50 mg PO Q6H PRN (Reason: pain) Qty: 15 0RF hydrocortisone acetate [Anusol-HC] 25 mg suppository 25 mg MD BEDTIME Qty: 12 0RF polyethylene glycol 3350 [Miralax] 17 gram/dose powder 17 g PO DAILY Qty: 510 0RF Interventions: ED Discharge Assessment Last Done: 07/02/22 22:57 Discharge Date/Time: 07/02/22 22:58
[2022-07-02 22:53] VITALS: BP 126/84; PULSE 73; RESP 16; TEMP 36.9; O2SAT 98
== END 2022-07-02 22:58 | disposition home or self-care (01) ==
PROVIDERS: Emergency Provider Emergency Medicine
DX: K59.00 Constipation, unspecified (principal); K64.9 Unspecified hemorrhoids; K62.5 Hemorrhage of anus and rectum; B20 Human immunodeficiency virus [HIV] disease
CPT/HCPCS: 36415; 80048; 85025; 99283

== ENCOUNTER 2022-10-19 08:58 | Outpatient (REF) | payer OTHER, SELFPAY ==
[2022-10-19 10:18] LABS: Basophils Percent Auto 0.7 % (0-2); Eosinophils Percent Auto 0.7 % (0-4); Hematocrit 32.5 % (42.0-52.0); Hemoglobin 11.1 g/dl (14.0-18.0); Imm Gran Abs Auto 0.01 X10*3/uL (0.00-0.03); Imm Gran Pct Auto 0.4 % (0.0-0.4); Lymphocytes Absolute Auto 1.5 X10*3/uL (1.2-4.9); Lymphocytes Percent Auto 55.6 % (20-40); MANUAL DIFF FLAG SCAN; Mean Corpuscular Hemoglobin 30.2 pg (27.0-33.0); Mean Corpuscular Volume 88.6 fL (80.0-98.0); Mean Platelet Volume 11.6 fL (9.4-12.4); Monocytes Absolute Auto 0.2 X10*3/uL (0.1-1.2); Monocytes Percent Auto 7.4 % (2-11); Neutrophils Percent Auto 35.2 % (45-73); Platelet Count 72 X10*3/uL (160-400); Red Blood Count 3.67 X10*6/uL (4.60-5.80); SCAN SMEAR FLAG 1; White Blood Count 2.7 X10*3/uL (4.8-10.8)
[2022-10-19 10:19] LABS: Alanine Aminotransferase 63 U/L (0-40); Aspartate Amino Transferase 116 U/L (5-37); Mean Corpuscular HGB Conc 34.2 g/dl (31.0-36.0)
[2022-10-19 10:21] LABS: SLIDE REVIEW VERIFIED
[2022-10-19 12:48] LABS: CT PCR NOT DETECTED (Not Detect.); NG PCR NOT DETECTED (Not Detect.)
[2022-10-21 09:51] LABS: HBsAGNum1 0.32 S/CO (0.00-0.99); Hepatitis B Surface Antigen Negative (Negative); ~HepC Num1 0.17 S/CO (0.00-0.79); ~Hepatitis C Antibody Nonreactive (Nonreactive)
[2022-10-21 10:17] LABS: Syphilis Screen Nonreactive (Nonreactive)
[2022-10-21 14:37] LABS: Absolute CD3 Count 1111 cells/uL (840-3060); Absolute CD4 Count 88 cells/uL (490-1740); Absolute CD8 Count 1050 cells/uL (180-1170); Absolute Lymphocytes 1214 cells/uL (850-3900); CD4 CD8 Ratio 0.08 (0.86-5.00); Percent CD3 Cells 91 % (57-85); Percent CD4 Cells 7 % (30-61); Percent CD8 Cells 87 % (12-42)
[2022-10-22 19:27] LABS: HIV RNA PCR Qn Copies 186000 copies/mL (NOT DETECTED); HIV RNA PCR Qn Log Copies 5.27 (NOT DETECTED)
== END 2022-10-19 08:59 | disposition home or self-care (01) ==
LOC: HO.LAB 08:58
PROVIDERS: Visit Provider Internal Medicine Infectious Disease
DX: B20 Human immunodeficiency virus [HIV] disease (principal)
CPT/HCPCS: 84450; 84460; 85025; 86359; 86360; 86780; 86803; 87340; 87491; 87536; 87591

== ENCOUNTER 2023-02-20 12:09 | Emergency (ER) | payer OTHER, SELFPAY ==
--- NOTE | ~2023-02-20 | XR_ITS ---
EXAMINATION: XR CHEST CLINICAL INFORMATION: Chest pain. COMPARISON: 03/29/2022 chest radiograph TECHNIQUE: Frontal view of the chest was obtained. FINDINGS: No significant abnormality is noted involving the heart, lungs, mediastinum, bony thorax or soft tissues. XR/XR chest 1V IMPRESSION: No acute cardiopulmonary process.
--- NOTE | 2023-02-20 12:12 | ECG_ITS ---
Test Reason : chest tightness Blood Pressure : / mmHG Vent. Rate : 078 BPM Atrial Rate : 078 BPM P-R Int : 192 ms QRS Dur : 090 ms QT Int : 422 ms P-R-T Axes : 015 -31 -03 degrees QTc Int : 481 ms Normal sinus rhythm Left axis deviation Possible Lateral infarct , age undetermined - could be related to body habitus Abnormal ECG When compared with ECG of 20-JUN-2022 19:09, No significant change was found Referred By: Mamie Yadav Electronically Signed By:YURY STONE
--- NOTE | 2023-02-20 12:19 | ED.GENADULT ---
HPI - General Adult General Chief complaint: Allergic Reaction <ISAURO Jackman - Last Filed: 02/20/23 12:20> Stated complaint: Diff Breathing Chest Tightness <ISAURO Jackman - Last Filed: 02/20/23 12:20> Time Seen by Provider: 02/20/23 12:30 <ISAURO Jackman - Last Filed: 02/20/23 12:20> Source: patient <ISAURO Gaelano - Last Filed: 02/20/23 17:17> Mode of arrival: ambulatory <ISAURO Galeano - Last Filed: 02/20/23 17:17> Limitations: no limitations <ISAURO Galeano - Last Filed: 02/20/23 17:17> History of Present Illness HPI narrative: Patient is a 33 year old assigned male at with no reported medical history presenting to the emergency department today with hives. Patient states that he took a benadryl last night and woke up this morning with hives and thinks that he is allergic to benadryl. Patient denies any dizziness, lightheadedness, abdominal pain, nausea, vomiting, fever, chills, blurry vision, double vision, loss of vision, chest pain, difficulty breathing, shortness of breath, back pain, night sweats, pain with urination, increased urinary frequency, increased urinary urgency, blood in his urine or stool, syncope or a near syncopal episode, recent trauma or falls, bowel incontinence, bladder incontinence, bowel retention, bladder retention, or any other complaints at this time. <ISAURO Galeano - Last Filed: 02/20/23 17:17> Onset (ago): hour(s) <ISAURO Galeano - Last Filed: 02/20/23 17:17> Severity: mild <ISAURO Galeano - Last Filed: 02/20/23 17:17> Severity scale (1-10): 2 <ISAURO Galeano - Last Filed: 02/20/23 17:17> Pain Consistency: constant <ISAURO Galeano - Last Filed: 02/20/23 17:17> Relieving factors: none <ISAURO Galeano - Last Filed: 02/20/23 17:17> Exacerbating factors: none <ISAURO Galeano - Last Filed: 02/20/23 17:17> Associated symptoms: denies other symptoms <ISAURO Galeano - Last Filed: 02/20/23 17:17> Treatments prior to arrival: none <ISAURO Galeano - Last Filed: 02/20/23 17:17> Related Data Home medications: Previous Rx's Medication Instructions Recorded cyclobenzaprine 5 mg tablet 5 mg PO Q8H PRN pain (scale score 09/24/20 7-10) 5 days #14 tabs lidocaine 5 % topical patch 1 patch topical DAILY PRN pain #30 09/24/20 (Lidoderm) ea hydrocortisone acetate 25 mg 25 mg CA BEDTIME #12 ea 06/21/22 rectal suppository (Anusol-HC) polyethylene glycol 3350 17 17 g PO DAILY #510 grams 06/21/22 gram/dose oral powder (Miralax) tramadol 50 mg tablet 50 mg PO Q6H PRN pain #15 tabs 06/21/22 docusate sodium 100 mg capsule 100 mg PO BID 7 days #14 caps 06/30/22 (Colace) lactulose 10 gram/15 mL oral 20 g (30 mL) PO BID 7 days #420 mL 06/30/22 solution phenylephrine 0.25 %-cocoa butter 1 supp CA BID 7 days #24 ea 06/30/22 88.44 % rectal suppository (Preparation H(phenyleph,cocoa buttr)) hydrocortisone 1 %-pramoxine 1 % 1 appl CA QID PRN hemorrhoids #10 07/02/22 rectal foam grams prednisone 20 mg tablet 20 mg PO DAILY 7 days #7 tabs 02/20/23 <ISAURO Jackman - Last Filed: 02/20/23 12:20> Allergies/adverse reactions: Allergies Allergy/AdvReac Type Severity Reaction Status Date / Time acetaminophen [From TYLENOL] Allergy Unknown SWELLING Verified 07/02/22 17:10 aspirin [ASPIRIN] Allergy Unknown RASH Verified 03/29/22 21:19 ibuprofen [From MOTRIN] Allergy Unknown SWELLING Verified 03/29/22 21:19 SEAFOOD Allergy Unknown ANAPHYLAXIS Uncoded 09/24/20 19:41 <ISAURO Jackman - Last Filed: 02/20/23 12:20> Review of Systems Constitutional: Constitutional: Reports no additional constitutional complaints, Denies chills, Denies fever(s) and Denies night sweats <ISAURO Galeano - Last Filed: 02/20/23 17:17> Eyes: Eyes: Reports no additional eye complaints, Denies blurry vision, Denies change in vision, Denies diplopia, Denies eye discharge, Denies loss of vision and Denies eye pain <ISAURO Galeano - Last Filed: 02/20/23 17:17> ENT: Denies dizziness <ISAURO Galeano - Last Filed: 02/20/23 17:17> Cardiovascular: Cardiovascular: Reports no additional cardiovascular complaints, Denies chest pain, Denies lightheadedness, Denies Loss of Consciousness and Denies dyspnea <ISAURO Galeano - Last Filed: 02/20/23 17:17> Respiratory: Respiratory: Reports no additional respiratory complaints and Denies dyspnea <ISAURO Galeano - Last Filed: 02/20/23 17:17> Gastrointestinal: Gastrointestinal: Reports no additional gastrointestinal complaints, Denies abdominal pain, Denies melena, Denies hematochezia, Denies change in bowel habits and Denies change in stool character <ISAURO Galeano - Last Filed: 02/20/23 17:17> Genitourinary: Genitourinary: Reports no additional male genitourinary complaints, Denies hematuria, Denies oliguria, Denies difficulty urinating, Denies dysuria, Denies urinary frequency, Denies urinary hesitancy, Denies urinary incontinence and Denies urinary urgency <ISAURO Galeano - Last Filed: 02/20/23 17:17> Musculoskeletal: Musculoskeletal: Reports no additional musculoskeletal complaints, Denies numbness and Denies tingling <ISAURO Galeano - Last Filed: 02/20/23 17:17> Integumentary/Breasts: Skin/Breast: Reports rash <ISAURO Galeano - Last Filed: 02/20/23 17:17> Neurologic: Denies dizziness, Denies loss of vision, Denies numbness and Denies tingling <ISAURO Galeano - Last Filed: 02/20/23 17:17> Psychiatric: Psychiatric: Reports no additional psychiatric complaints <ISAURO Galeano - Last Filed: 02/20/23 17:17> Endocrine: Endocrine: Reports no additional endocrine complaints <ISAURO Galeano - Last Filed: 02/20/23 17:17> Hematologic/Lymphatic: Hematologic/Lymphatic: Reports no additional hematologic/lymphatic complaints <ISAURO Galeano - Last Filed: 02/20/23 17:17> Allergic/Immunologic: Allergic/Immunologic: Reports no additional allergic/immunologic complaints <ISAURO Galeano - Last Filed: 02/20/23 17:17> [facility] Past Medical History Attestation statement: The following information was validated with the patient. <ISAURO Galeano - Last Filed: 02/20/23 17:17> Source: old records reviewed and nursing notes reviewed <ISAURO Galeano - Last Filed: 02/20/23 17:17> Medical History: Medical History Asthma HIV (human immunodeficiency virus infection) <ISAURO Jackman - Last Filed: 02/20/23 12:20> Social History Social History: Social History Alcohol intake: current Alcohol intake frequency: holidays/special occasions only Patient Tobacco Use Status: Never used Tobacco Smoked in Last 30 Days: No Use of substances other than those prescribed or required for medical reasons: Yes Substance Use Type: Marijuana Advance Directives: No <ISAURO Jackman - Last Filed: 02/20/23 12:20> Physical Exam ED Vital Signs: Vital Signs - 24 hr 02/20/23 12:41 02/20/23 14:14 02/20/23 14:57 Temperature 97.2 F 98.2 F Pulse Rate 81 75 79 Respiratory Rate 17 12 15 Blood Pressure 130/80 117/68 137/78 Pulse Oximetry 100 100 99 Oxygen Delivery Method Room Air Room Air Room Air BMI result Body Mass Index 41.6 <ISAURO Jackman - Last Filed: 02/20/23 12:20> Vital Signs - 24 hr 02/20/23 12:41 02/20/23 14:14 02/20/23 14:57 Temperature 97.2 F 98.2 F Pulse Rate 81 75 79 Respiratory Rate 17 12 15 Blood Pressure 130/80 117/68 137/78 Pulse Oximetry 100 100 99 Oxygen Delivery Method Room Air Room Air Room Air BMI result Body Mass Index 41.6 <ISAURO Galeano - Last Filed: 02/20/23 17:17> Const General: cooperative, no acute distress, alert and awake <ISAURO Galeano - Last Filed: 02/20/23 17:17> Nutritional Appearance: well nourished <ISAURO Galeano - Last Filed: 02/20/23 17:17> Orientation/consciousness: patient oriented x3 <ISAURO Galeano - Last Filed: 02/20/23 17:17> Limitations: no limitations <ISAURO Galeano - Last Filed: 02/20/23 17:17> HENMT Head: Yes normal to inspection and Yes atraumatic <ISAURO Galeano - Last Filed: 02/20/23 17:17> Ears: hearing grossly normal bilaterally and external ears normal <ISAURO Galeano - Last Filed: 02/20/23 17:17> General nose exam: Normal external nose present, no nasal discharge noted and no epistaxis <ISAURO Galeano - Last Filed: 02/20/23 17:17> Face and sinus: Yes normal facial exam, No abrasion and No laceration <ISAURO Galeano - Last Filed: 02/20/23 17:17> Mouth: Normal oral and palatal mucosa present, no drooling and no muffled voice <ISAURO Galeano - Last Filed: 02/20/23 17:17> Eyes General: appearance normal, both eyes and all related structures <ISAURO Galeano - Last Filed: 02/20/23 17:17> Periorbital: periorbital findings normal <ISAURO Galeano - Last Filed: 02/20/23 17:17> Eyelids: Yes eyelids normal <ISAURO Galeano - Last Filed: 02/20/23 17:17> Conjunctivae: conjunctivae normal <ISAURO Galeano - Last Filed: 02/20/23 17:17> Pupils: Equal, round and reactive pupils present <Angelina Good PA - Last Filed: 02/20/23 17:17> EOM: EOMs intact bilaterally <Angelina Good PA - Last Filed: 02/20/23 17:17> Neck Neck: Yes normal visual inspection, Yes full ROM and Yes no lymphadenopathy <Angelina Good PA - Last Filed: 02/20/23 17:17> Chest Chest palpation & inspection: normal inspection of the chest <Angelina Good PA - Last Filed: 02/20/23 17:17> Resp Effort & Inspection: normal respiratory effort and able to speak in complete sentences <Angelina Good PA - Last Filed: 02/20/23 17:17> Auscultation: clear to auscultation bilaterally <Angelina Good PA - Last Filed: 02/20/23 17:17> Cardio Rate: regular rate <Angelina Good PA - Last Filed: 02/20/23 17:17> Rhythm: regular rhythm <Angelina Good PA - Last Filed: 02/20/23 17:17> GI Inspection: Yes normal to inspection <Angelina Good PA - Last Filed: 02/20/23 17:17> Palpation (GI): Soft to palpation, not firm, nontender and no guarding <Angelina Good PA - Last Filed: 02/20/23 17:17> Skin Other: diffuse urticaria noted <Angelina Good PA - Last Filed: 02/20/23 17:17> Neuro General: patient oriented x3 and moves all extremities <Angelina Good PA - Last Filed: 02/20/23 17:17> Cranial nerves: Yes Equal, round and reactive pupils present <Angelina Good PA - Last Filed: 02/20/23 17:17> Cognition (Neuro): normal cognition <Angelina Good PA - Last Filed: 02/20/23 17:17> Motor exam (neuro): 5/5 motor strength present throughout <Angelina Good PA - Last Filed: 02/20/23 17:17> Sensory Exam: Normal double simultaneous stimulation for sensation <Angelina Good PA - Last Filed: 02/20/23 17:17> Coordination: [id number] test normal <ISAURO Galeano - Last Filed: 02/20/23 17:17> Extrem General: Yes normal to inspection, Yes full ROM and Yes capillary refill normal <ISAURO Galeano - Last Filed: 02/20/23 17:17> Psych Appearance: grossly normal <ISAURO Galeano - Last Filed: 02/20/23 17:17> Mental Status: mental status grossly normal <ISAURO Galeano - Last Filed: 02/20/23 17:17> Affect: normal affect <ISAURO Galeano - Last Filed: 02/20/23 17:17> Attitude: cooperative <ISAURO Galeano - Last Filed: 02/20/23 17:17> Thought process: Normal thought process present <ISAURO Galeano - Last Filed: 02/20/23 17:17> Thought content: Normal thought content present <ISAURO Galeano - Last Filed: 02/20/23 17:17> Insight: Good insight present (Psych) <ISAURO Galeano - Last Filed: 02/20/23 17:17> Course Course Course Narrative: This is an RME: Additional HPI, ROS, PE not included below will be deferred to primary provider. 33-year-old male presents with chest discomfort, shortness of breath, diffuse rash to body since this morning. Patient reports that he may have had a pill with fish in and he is allergic to fish. Reports his upper lip is also swollen. Patient tells me shortness of breath at rest and with exertion and substernal chest pressure. Physical exam with slight swelling to upper lip. Patent airway. Vital signs stable. Speaking in full sentences. There is a diffuse body rash. Plan labs imaging ordered Benadryl and Decadron. Will go to the back <ISAURO Jackman - Last Filed: 02/20/23 12:20> Medications Administered Discontinued Medications Generic Name Dose Route Start Last Admin Trade Name Freq PRN Reason Stop Dose Admin Dexamethasone Sodium Phosphate 10 mg 02/20/23 12:18 02/20/23 12:35 Dexamethasone Sod Phosphate 10 Mg/Ml Vial IVPUSH 02/20/23 12:19 10 mg ONCE ONE Administration Diphenhydramine HCl 50 mg 02/20/23 12:18 02/20/23 12:37 Diphenhydramine Hcl 50 Mg/Ml Vial IVPUSH 02/20/23 12:19 50 mg ONCE ONE Administration <ISAURO Jackman - Last Filed: 02/20/23 12:20> Medications Administered Discontinued Medications Generic Name Dose Route Start Last Admin Trade Name Chriss PRN Reason Stop Dose Admin Dexamethasone Sodium Phosphate 10 mg 02/20/23 12:18 02/20/23 12:35 Dexamethasone Sod Phosphate 10 Mg/Ml Vial IVPUSH 02/20/23 12:19 10 mg ONCE ONE Administration Diphenhydramine HCl 50 mg 02/20/23 12:18 02/20/23 12:37 Diphenhydramine Hcl 50 Mg/Ml Vial IVPUSH 02/20/23 12:19 50 mg ONCE ONE Administration <ISAURO Galeano - Last Filed: 02/20/23 17:17> Medical Decision Making Medical Decision Making [facility] Narrative: Patient is a 33 year old assigned male at with no reported medical history presenting to the emergency department today with hives. Patient's physical exam showed diffuse urticaria but was otherwise unremarkable. Patient's blood work was unremarkable. Patient's EKG was unremarkable. Patient's chest x-ray showed no acute process. I explained my physical exam findings as well as all test results to the patient. I answered all questions asked by the patient. Patient received IV steroids and benadryl which he stated helped his symptoms significantly. I stressed the importance of the patient taking his medication as prescribed. I stressed the importance of the patient following up with his primary care provider. I stressed the importance of the patient returning to the emergency department immediately if his symptoms were to worsen or if he were to develop any dizziness, shortness of breath, difficulty breathing, chest pain, blurry vision, loss of vision, nausea, vomiting, abdominal pain, fever, chills, back pain, or any other complaints. Patient verbalized agreement and understanding with this treatment plan and discharge. <ISAURO Galeano - Last Filed: 02/20/23 17:17> Differential Diagnosis Differential Diagnoses: The differential diagnosis associated with the presentation includes <ISAURO Galeano - Last Filed: 02/20/23 17:17> idiopathic urticaria <ISAURO Galeano - Last Filed: 02/20/23 17:17> Lab Data [facility] Lab Attestation statement: I reviewed the patient's lab results. <ISAURO Galeano - Last Filed: 02/20/23 17:17> Result Diagrams: 02/20/23 13:10 02/20/23 13:10 <ISAURO Jackman - Last Filed: 02/20/23 12:20> Labs: Lab Results 02/20/23 02/20/23 02/20/23 Range/Units 13:10 13:10 13:10 WBC 2.6 L (4.8-10.8) X10*3/uL RBC 3.81 L (4.60-5.80) X10*6/uL Hgb 11.9 L (14.0-18.0) g/dl Hct 35.0 L (42.0-52.0) % MCV 91.9 (80.0-98.0) fL MCH 31.2 (27.0-33.0) pg MCHC 34.0 (31.0-36.0) g/dl RDW 18.3 H (11.0-16.0) % Plt Count 65 L (160-400) X10*3/uL MPV Not Reportable Immature Gran % (Auto) 0.4 (0.0-0.4) % Neut % (Auto) 32.4 L (45-73) % Lymph % (Auto) 60.7 H (20-40) % Trinity % (Auto) 5.7 (2-11) % Eos % (Auto) 0.4 (0-4) % Baso % (Auto) 0.4 (0-2) % Lymph # (Auto) 1.6 (1.2-4.9) X10*3/uL Trinity # (Auto) 0.2 (0.1-1.2) X10*3/uL Eos # (Auto) 0.0 (0.0-0.4) X10*3/uL Baso # (Auto) 0.0 (0.0-0.2) X10*3/uL Abs Immat Gran (auto) 0.01 (0.00-0.03) X10*3/uL Absolute Neuts (auto) 0.9 L (2.0-8.3) x10*3/uL Absolute Nucleated RBC 0.000 (0.0-0.012) X10*3/uL Nucleated RBC % (auto) 0.0 (0.0-0.2) /100WBC Smear Tech's Comments VERIFIED Sodium 137 (135-145) mmol/L Potassium 3.8 (3.3-5.1) mmol/L Chloride 108 (96-108) mmol/L Carbon Dioxide 22 (22-29) mmol/L Anion Gap 11 L (12-20) BUN 7 L (9-16) mg/dL Creatinine 0.56 (0.5-1.4) mg/dL Estim Creat Clear Calc 211.1 Estimated GFR > 60 Random Glucose 77 (60-115) mg/dL Calcium 8.2 L (8.4-10.2) mg/dL Magnesium 1.7 (1.6-2.6) mg/dL Total Bilirubin 5.0 H (0.0-1.0) mg/dL AST 113 H (5-37) U/L ALT 59 H (0-40) U/L Alkaline Phosphatase 177 H (39-117) U/L Troponin I High Sens < 3.5 (<3.5-35.0) ng/L B-Natriuretic Peptide (<100) pg/mL Total Protein 7.7 (6.5-8.0) g/dL Albumin 2.9 L (3.5-5.0) g/dL COVID-19 (TREE) (Negative) COVID-19 Clin Com S. pyogenes GrpA SONYA (Negative) 02/20/23 02/20/23 02/20/23 Range/Units 13:10 13:10 13:10 WBC (4.8-10.8) X10*3/uL RBC (4.60-5.80) X10*6/uL Hgb (14.0-18.0) g/dl Hct (42.0-52.0) % MCV (80.0-98.0) fL MCH (27.0-33.0) pg MCHC (31.0-36.0) g/dl RDW (11.0-16.0) % Plt Count (160-400) X10*3/uL MPV Immature Gran % (Auto) (0.0-0.4) % Neut % (Auto) (45-73) % Lymph % (Auto) (20-40) % Trinity % (Auto) (2-11) % Eos % (Auto) (0-4) % Baso % (Auto) (0-2) % Lymph # (Auto) (1.2-4.9) X10*3/uL Trinity # (Auto) (0.1-1.2) X10*3/uL Eos # (Auto) (0.0-0.4) X10*3/uL Baso # (Auto) (0.0-0.2) X10*3/uL Abs Immat Gran (auto) (0.00-0.03) X10*3/uL Absolute Neuts (auto) (2.0-8.3) x10*3/uL Absolute Nucleated RBC (0.0-0.012) X10*3/uL Nucleated RBC % (auto) (0.0-0.2) /100WBC Smear Tech's Comments Sodium (135-145) mmol/L Potassium (3.3-5.1) mmol/L Chloride (96-108) mmol/L Carbon Dioxide (22-29) mmol/L Anion Gap (12-20) BUN (9-16) mg/dL Creatinine (0.5-1.4) mg/dL Estim Creat Clear Calc Estimated GFR Random Glucose (60-115) mg/dL Calcium (8.4-10.2) mg/dL Magnesium (1.6-2.6) mg/dL Total Bilirubin (0.0-1.0) mg/dL AST (5-37) U/L ALT (0-40) U/L Alkaline Phosphatase (39-117) U/L Troponin I High Sens (<3.5-35.0) ng/L B-Natriuretic Peptide 76 (<100) pg/mL Total Protein (6.5-8.0) g/dL Albumin (3.5-5.0) g/dL COVID-19 ([facility]REE) Negative (Negative) COVID-19 Clin Com See Note S. pyogenes GrpA SONYA Negative (Negative) <ISAURO Jackman - Last Filed: 02/20/23 12:20> Lab Results 03/30/23 03/30/23 03/30/23 Range/Units 13:10 13:10 13:10 WBC 2.6 L (4.8-10.8) X10*3/uL RBC 3.81 L (4.60-5.80) X10*6/uL Hgb 11.9 L (14.0-18.0) g/dl Hct 35.0 L (42.0-52.0) % MCV 91.9 (80.0-98.0) fL MCH 31.2 (27.0-33.0) pg MCHC 34.0 (31.0-36.0) g/dl RDW 18.3 H (11.0-16.0) % Plt Count 65 L (160-400) X10*3/uL MPV Not Reportable Immature Gran % (Auto) 0.4 (0.0-0.4) % Neut % (Auto) 32.4 L (45-73) % Lymph % (Auto) 60.7 H (20-40) % Trinity % (Auto) 5.7 (2-11) % Eos % (Auto) 0.4 (0-4) % Baso % (Auto) 0.4 (0-2) % Lymph # (Auto) 1.6 (1.2-4.9) X10*3/uL Trinity # (Auto) 0.2 (0.1-1.2) X10*3/uL Eos # (Auto) 0.0 (0.0-0.4) X10*3/uL Baso # (Auto) 0.0 (0.0-0.2) X10*3/uL Abs Immat Gran (auto) 0.01 (0.00-0.03) X10*3/uL Absolute Neuts (auto) 0.9 L (2.0-8.3) x10*3/uL Absolute Nucleated RBC 0.000 (0.0-0.012) X10*3/uL Nucleated RBC % (auto) 0.0 (0.0-0.2) /100WBC Smear Tech's Comments VERIFIED Sodium 137 (135-145) mmol/L Potassium 3.8 (3.3-5.1) mmol/L Chloride 108 (96-108) mmol/L Carbon Dioxide 22 (22-29) mmol/L Anion Gap 11 L (12-20) BUN 7 L (9-16) mg/dL Creatinine 0.56 (0.5-1.4) mg/dL Estim Creat Clear Calc 211.1 Estimated GFR > 60 Random Glucose 77 (60-115) mg/dL Calcium 8.2 L (8.4-10.2) mg/dL Magnesium 1.7 (1.6-2.6) mg/dL Total Bilirubin 5.0 H (0.0-1.0) mg/dL AST 113 H (5-37) U/L ALT 59 H (0-40) U/L Alkaline Phosphatase 177 H (39-117) U/L Troponin I High Sens < 3.5 (<3.5-35.0) ng/L B-Natriuretic Peptide (<100) pg/mL Total Protein 7.7 (6.5-8.0) g/dL Albumin 2.9 L (3.5-5.0) g/dL COVID-19 ([facility]REE) (Negative) COVID-19 Clin Com S. pyogenes GrpA SONYA (Negative) 02/20/23 02/20/23 02/20/23 Range/Units 13:10 13:10 13:10 WBC (4.8-10.8) X10*3/uL RBC (4.60-5.80) X10*6/uL Hgb (14.0-18.0) g/dl Hct (42.0-52.0) % MCV (80.0-98.0) fL MCH (27.0-33.0) pg MCHC (31.0-36.0) g/dl RDW (11.0-16.0) % Plt Count (160-400) X10*3/uL MPV Immature Gran % (Auto) (0.0-0.4) % Neut % (Auto) (45-73) % Lymph % (Auto) (20-40) % Trinity % (Auto) (2-11) % Eos % (Auto) (0-4) % Baso % (Auto) (0-2) % Lymph # (Auto) (1.2-4.9) X10*3/uL Trinity # (Auto) (0.1-1.2) X10*3/uL Eos # (Auto) (0.0-0.4) X10*3/uL Baso # (Auto) (0.0-0.2) X10*3/uL Abs Immat Gran (auto) (0.00-0.03) X10*3/uL Absolute Neuts (auto) (2.0-8.3) x10*3/uL Absolute Nucleated RBC (0.0-0.012) X10*3/uL Nucleated RBC % (auto) (0.0-0.2) /100WBC Smear Tech's Comments Sodium (135-145) mmol/L Potassium (3.3-5.1) mmol/L Chloride (96-108) mmol/L Carbon Dioxide (22-29) mmol/L Anion Gap (12-20) BUN (9-16) mg/dL Creatinine (0.5-1.4) mg/dL Estim Creat Clear Calc Estimated GFR Random Glucose (60-115) mg/dL Calcium (8.4-10.2) mg/dL Magnesium (1.6-2.6) mg/dL Total Bilirubin (0.0-1.0) mg/dL AST (5-37) U/L ALT (0-40) U/L Alkaline Phosphatase (39-117) U/L Troponin I High Sens (<3.5-35.0) ng/L B-Natriuretic Peptide 76 (<100) pg/mL Total Protein (6.5-8.0) g/dL Albumin (3.5-5.0) g/dL COVID-19 ([facility]) Negative (Negative) COVID-19 Clin Com See Note S. pyogenes GrpA SONYA Negative (Negative) <ISAURO Galeano - Last Filed: 02/20/23 17:17> Independent Interpretation I performed an independent interpretation of an: EKG <ISAURO Galeano - Last Filed: 02/20/23 17:17> Interpretation: Vent. Rate: 078 BPM ? ? Atrial Rate: 078 BPM P-R Int: 192 ms? QRS Dur: 090 ms QT Int: 422 ms ? ? ? P-R-T Axes: 015 -31 -03 degrees QTc Int: 481 ms ? Normal sinus rhythm Left axis deviation Possible Lateral infarct , age undetermined - could be related to body habitus Abnormal ECG When compared with ECG of 20-JUN-2022 19:09, No significant change was found ? Referred By: Mamie Yadav ? Electronically Signed By:RY STONE Dictated By: Ry Stone MD Signed By: Electronically signed by Ry Stone MD 02/20/23 [id number] <ISAURO Galeano - Last Filed: 02/20/23 17:17> Radiology Impression Radiologist Impression: My interpretation is in agreement with the radiologist's impression of this imaging study. EXAMINATION: XR CHEST CLINICAL INFORMATION: Chest pain. COMPARISON: 03/29/2022 chest radiograph TECHNIQUE: Frontal view of the chest was obtained. FINDINGS: No significant abnormality is noted involving the heart, lungs, mediastinum, bony thorax or soft tissues. XR/XR chest 1V IMPRESSION: No acute cardiopulmonary process. Dictated By: Indio Bonilla MD Signed By: Electronically signed by Indio Bonilla MD 02/20/23 [id number] <ISAURO Galeano Last Filed: 02/20/23 17:17> Discharge Plan Discharge Clinical Impression: Allergic reaction <ISAURO Jackman Last Filed: 02/20/23 12:20> Patient Disposition: Home, Self-Care <ISAURO Jackman Last Filed: 02/20/23 12:20> Instructions: General Allergic Reaction (ED) <ISAURO Jackman Last Filed: 02/20/23 12:20> Additional Instructions: Follow up with your primary care provider. Return to the emergency department immediately if your symptoms worsen or if you develop any dizziness, shortness of breath, difficulty breathing, chest pain, blurry vision, loss of vision, nausea, vomiting, abdominal pain, fever, chills, back pain, or any other complaints. <ISAURO Jackman - Last Filed: 02/20/23 12:20> Prescriptions: New prednisone 20 mg tablet 20 mg PO DAILY 7 Days Qty: 7 0RF No Action lidocaine [Lidoderm] 5 % adhesive patch,medicated 1 patch topical DAILY MDD remove after 12 hours PRN (Reason: pain) Qty: 30 0RF Rx Instructions: leave on most painful area for up to 12 hrs cyclobenzaprine 5 mg tablet 5 mg PO Q8H PRN (Reason: pain (scale score 7-10)) 5 Days Qty: 14 0RF lactulose 10 gram/15 mL solution 20 g PO BID 7 Days Qty: 420 0RF docusate sodium [Colace] 100 mg capsule 100 mg PO BID 7 Days Qty: 14 0RF Preparation H(pe,cb) 0.25-88.44 % suppository 1 supp CA BID 7 Days Qty: 24 0RF hydrocortisone-pramoxine 1-1 % foam 1 appl CA QID PRN (Reason: hemorrhoids) Qty: 10 0RF tramadol 50 mg tablet 50 mg PO Q6H PRN (Reason: pain) Qty: 15 0RF hydrocortisone acetate [Anusol-HC] 25 mg suppository 25 mg CA BEDTIME Qty: 12 0RF polyethylene glycol 3350 [Miralax] 17 gram/dose powder 17 g PO DAILY Qty: 510 0RF <ISAURO Jackman - Last Filed: 02/20/23 12:20> Referrals: Ti Guthrie MD [Primary Care Provider] - <ISAURO Jackman - Last Filed: 02/20/23 12:20> Stand Alone Forms: Work/School Release <ISAURO Jackman - Last Filed: 02/20/23 12:20> Interventions: ED Discharge Assessment Last Done: 02/20/23 14:57 <ISAURO Jackman - Last Filed: 02/20/23 12:20> Discharge Date/Time: 02/20/23 15:04 <ISAURO Jackman - Last Filed: 02/20/23 12:20> Print Language: Indian <ISAURO Jackman - Last Filed: 02/20/23 12:20>
[2023-02-20] MEDS: dexAMETHasone sod phosphate 10 MG/ML VIAL IVPUSH (12:35)
[2023-02-20] MEDS: diphenhydrAMINE HCL 50 MG/ML VIAL IVPUSH (12:37)
[2023-02-20 12:41] VITALS: BP 130/80; PULSE 81; RESP 17; TEMP 36.2; O2SAT 100; BMI 41.6
[2023-02-20 13:26] LABS: Basophils Percent Auto 0.4 % (0-2); Eosinophils Percent Auto 0.4 % (0-4); Hemoglobin 11.9 g/dl (14.0-18.0); Imm Gran Abs Auto 0.01 X10*3/uL (0.00-0.03); Imm Gran Pct Auto 0.4 % (0.0-0.4); Lymphocytes Absolute Auto 1.6 X10*3/uL (1.2-4.9); Lymphocytes Percent Auto 60.7 % (20-40); MANUAL DIFF FLAG SCAN; Mean Corpuscular Hemoglobin 31.2 pg (27.0-33.0); Mean Corpuscular Volume 91.9 fL (80.0-98.0); Monocytes Absolute Auto 0.2 X10*3/uL (0.1-1.2); Monocytes Percent Auto 5.7 % (2-11); Neutrophils Absolute Auto 0.9 x10*3/uL (2.0-8.3); Neutrophils Percent Auto 32.4 % (45-73); Red Blood Count 3.81 X10*6/uL (4.60-5.80); Red Cell Distribution Width 18.3 % (11.0-16.0); SCAN SMEAR FLAG 1; White Blood Count 2.6 X10*3/uL (4.8-10.8)
[2023-02-20 13:28] LABS: Platelet Count 65 X10*3/uL (160-400)
[2023-02-20 13:29] LABS: IDNOW Serial# 6674DD1D; Strep A Nucleic Acid Negative (Negative)
[2023-02-20 13:36] LABS: COVID-19 Test Negative (Negative); IDNOW Serial# 9DB6401D
[2023-02-20 13:46] LABS: Alanine Aminotransferase 59 U/L (0-40); Albumin Level 2.9 g/dL (3.5-5.0); Alkaline Phosphatase 177 U/L (39-117); Anion Gap 11 (12-20); Aspartate Amino Transferase 113 U/L (5-37); Blood Urea Nitrogen 7 mg/dL (9-16); Calcium 8.2 mg/dL (8.4-10.2); Carbon Dioxide 22 mmol/L (22-29); Chloride 108 mmol/L (96-108); Creatinine Clr Calc Pharmacy 211.1; Estimated Glomerular Filt Rate > 60; Glucose Random 77 mg/dL (60-115); Magnesium 1.7 mg/dL (1.6-2.6); Potassium 3.8 mmol/L (3.3-5.1); Sodium 137 mmol/L (135-145); Total Protein 7.7 g/dL (6.5-8.0)
[2023-02-20 13:50] LABS: B Type Natriuretic Peptide 76 pg/mL (<100)
[2023-02-20 13:58] LABS: Troponin-I High Sensitivity < 3.5 ng/L (<3.5-35.0)
[2023-02-20 14:14] VITALS: BP 117/68; PULSE 75; RESP 12; O2SAT 100
[2023-02-20 14:14] LABS: SLIDE REVIEW VERIFIED
[2023-02-20 14:57] VITALS: BP 137/78; PULSE 79; RESP 15; TEMP 36.8; O2SAT 99
== END 2023-02-20 15:04 | disposition home or self-care (01) ==
PROVIDERS: Physician Assistant; Physician Assistant Medical; Emergency Provider Emergency Medicine; PCP Internal Medicine
DX: L50.0 Allergic urticaria (principal); R07.89 Other chest pain; R06.02 Shortness of breath; Z20.822 Contact with and (suspected) exposure to COVID-19; Z20.828 Contact with and (suspected) exposure to other viral communicable diseases; Z79.899 Other long term (current) drug therapy
CPT/HCPCS: 36415; 71045; 80053; 83735; 83880; 84484; 85025; 87635; 87651; 93005; 96374; 96375; 99284; J1100; J1200

== ENCOUNTER 2023-12-14 00:52 | Emergency (ER) | payer OTHER, SELFPAY ==
--- NOTE | 2023-12-14 | ECG_ITS ---
Test Reason : BODY SWOLLEN Blood Pressure : / mmHG Vent. Rate : 091 BPM Atrial Rate : 091 BPM P-R Int : 176 ms QRS Dur : 090 ms QT Int : 382 ms P-R-T Axes : 057 -21 000 degrees QTc Int : 469 ms Normal sinus rhythm Poor R wave progression anteriorly - cannot exclude old lateral infarct Abnormal ECG When compared with ECG of 20-FEB-2023 12:17, No significant change was found Referred By: Generic ED Physician Electronically Signed By:YURY STONE
[2023-12-14 01:08] VITALS: BP 112/79; BP 156/84; PULSE 92; PULSE 99; RESP 14; O2SAT 100; O2SAT 98; BMI 49.5
[2023-12-14 01:12] VITALS: BP 112/79; PULSE 99; RESP 16; O2SAT 100
[2023-12-14 01:32] LABS: Hematocrit 27.2 % (42.0-52.0); Hemoglobin 9.4 g/dl (14.0-18.0); Mean Corpuscular HGB Conc 34.6 g/dl (31.0-36.0); Mean Corpuscular Hemoglobin 36.3 pg (27.0-33.0); Mean Platelet Volume 10.6 fL (9.4-12.4); Red Blood Count 2.59 X10*6/uL (4.60-5.80); White Blood Count 4.6 X10*3/uL (4.8-10.8)
[2023-12-14 01:33] LABS: Platelet Count 97 X10*3/uL (160-400)
--- NOTE | 2023-12-14 01:48 | MHC.EDTECH ---
Patient biba from home ,vitals taken ,And ,Patient was hooked up to alarm security or surveillance monitor monitor ,ekg taken and was read by Provider .
[2023-12-14 01:55] LABS: Appearance Urine Clear; Color Urine Dark Yellow; Glucose Urine UA Negative (Negative); Leukocyte Esterase Urine Trace (Negative); Nitrite Urine Negative (Negative); Specific Gravity - Urine <= 1.005 (1.005-1.025); UMIC TRIGGER UACC YES; Urine Blood Negative (Negative); Urine Ketones Negative (Negative); Urine Protein Negative (Neg-Trace)
[2023-12-14 01:59] LABS: Alanine Aminotransferase 32 U/L (0-40); Albumin Level 2.2 g/dL (3.5-5.0); Alkaline Phosphatase 122 U/L (39-117); Anion Gap 10 (12-20); Aspartate Amino Transferase 50 U/L (5-37); Bilirubin Total 10.1 mg/dL (0.0-1.0); Blood Urea Nitrogen 9 mg/dL (9-16); Calcium 7.5 mg/dL (8.4-10.2); Carbon Dioxide 27 mmol/L (22-29); Chloride 104 mmol/L (96-108); Creatinine Clr Calc Pharmacy 167.4; Estimated Glomerular Filt Rate > 60; Glucose Random 97 mg/dL (60-115); Sodium 138 mmol/L (135-145); Total Protein 5.6 g/dL (6.5-8.0)
[2023-12-14 02:00] LABS: Bacteria Urine None Seen (None Seen); Hyaline Casts Urine 0-2 /LPF (0-2); RBC Urine 0-2 /HPF (0-2); WBC Urine 0-5 /HPF (0-5)
[2023-12-14 02:05] LABS: Troponin-I High Sensitivity 7.5 ng/L (<3.5-35.0)
[2023-12-14 02:18] VITALS: BP 146/81; PULSE 96; RESP 16; TEMP 37.2; O2SAT 98
--- NOTE | 2023-12-14 02:20 | ED_ITS ---
HPI - General Adult General Chief complaint: General Medical Stated complaint: abd swelling Time Seen by Provider: 12/14/23 01:15 Source: patient Mode of arrival: ambulatory Limitations: no limitations History of Present Illness HPI narrative: 33-year-old male with history of liver cirrhosis and ascites, patient usually go to [facility] or [facility] for his follow-up and periodic paracentesis, patient has no record in our facility records from [facility] was requested, patient reported that he is on liver transplantation list. Patient came in today hoping for paracentesis feel his belly is swollen, no SOB, no abdominal pain, fever, chills. Related Data Previous Rx's Medication Instructions Recorded cyclobenzaprine 5 mg tablet 5 mg PO Q8H PRN pain (scale score 09/24/20 7-10) 5 days #14 tabs lidocaine 5 % topical patch 1 patch topical DAILY PRN pain #30 09/24/20 (Lidoderm) ea hydrocortisone acetate 25 mg 25 mg MN BEDTIME #12 ea 06/21/22 rectal suppository (Anusol-HC) polyethylene glycol 3350 17 17 g PO DAILY #510 grams 06/21/22 gram/dose oral powder (Miralax) tramadol 50 mg tablet 50 mg PO Q6H PRN pain #15 tabs 06/21/22 docusate sodium 100 mg capsule 100 mg PO BID 7 days #14 caps 06/30/22 (Colace) lactulose 10 gram/15 mL oral 20 g (30 mL) PO BID 7 days #420 mL 06/30/22 solution phenylephrine 0.25 %-cocoa butter 1 supp MN BID 7 days #24 ea 06/30/22 88.44 % rectal suppository (Preparation H(phenyleph,cocoa buttr)) hydrocortisone 1 %-pramoxine 1 % 1 appl MN QID PRN hemorrhoids #10 07/02/22 rectal foam grams prednisone 20 mg tablet 20 mg PO DAILY 7 days #7 tabs 02/20/23 Allergies Allergy/AdvReac Type Severity Reaction Status Date / Time acetaminophen [From TYLENOL] Allergy Unknown SWELLING Verified 07/02/22 17:10 aspirin [ASPIRIN] Allergy Unknown RASH Verified 03/29/22 21:19 ibuprofen [From MOTRIN] Allergy Unknown SWELLING Verified 03/29/22 21:19 SEAFOOD Allergy Unknown ANAPHYLAXIS Uncoded 11/01/20 19:41 Review of Systems 2 Review of Systems: All other systems are reviewed and are negative Constitutional: Reports as per HPI and Reports no additional constitutional complaints Eyes: Reports as per HPI and Reports no additional eye complaints Reports system reviewed and no additional complaints, except as documented Cardiovascular: Reports as per HPI and Reports no additional cardiovascular complaints Respiratory: Reports as per HPI and Reports no additional respiratory complaints Gastrointestinal: Reports as per HPI and Reports no additional gastrointestinal complaints Genitourinary: Reports no additional female genitourinary complaints Musculoskeletal: Reports no additional musculoskeletal complaints Skin/Breast: Reports system reviewed and no additional complaints, except as docu Psychiatric: Reports no additional psychiatric complaints Endocrine: Reports no additional endocrine complaints Hematologic/Lymphatic: Reports no additional hematologic/lymphatic complaints Allergic/Immunologic: Reports no additional allergic/immunologic complaints Reports system reviewed and no additional complaints, except as documented and Reports Abnormal speech present PMFSH Past Medical History Onset Date is defined in the Problem List Problems that require an onset date and time if occurred within 24 hrs of arrival to the ED Aortic Dissection and Rupture; Neurologic impairment; Cardiopulmonary Arrest; Endotracheal Intubation; Insertion or Replacement of Mechanical Circulatory Assist Device Medical History Asthma HIV (human immunodeficiency virus infection) Social History Social History Alcohol intake: current Alcohol intake frequency: holidays/special occasions only Patient Tobacco Use Status: Never used Tobacco Smoked in Last 30 Days: No Use of substances other than those prescribed or required for medical reasons: Yes Substance Use Type: Marijuana Substance Use Frequency: Daily Advance Directives: No Advance Directives Information Provided: No Physical Exam ED Vital Signs: Vital Signs - 24 hr 12/14/23 01:08 12/14/23 01:12 12/14/23 02:18 Temperature 98.9 F Pulse Rate 99 99 96 Respiratory Rate 14 16 16 Blood Pressure 112/79 112/79 146/81 H Pulse Oximetry 100 100 98 Oxygen Delivery Method Room Air Room Air Room Air 12/14/23 06:17 Temperature 97.9 F Pulse Rate 96 Respiratory Rate 16 Blood Pressure 134/83 Pulse Oximetry 100 Oxygen Delivery Method Room Air BMI result Body Mass Index 49.5 Vital signs have been reviewed and appear to be correct. Blood pressure elevated. Heart rate normal. Respiratory rate normal. Temperature normal. Oxygen saturation normal. Appearance: Alert. Oriented X3. No acute distress. Head: Normal external exam. Normocephalic. Atraumatic. No Shoemaker signs noted. No raccoon eyes noted Eyes: PERRLA. EOMI. Conjunctiva and sclera normal. Eyelids normal. ENT: TM's Normal. Pharynx normal. Uvula midline. Moist mucous membranes. No trismus noted. No drooling noted. No muffled voice noted. Neck: Normal inspection. Neck supple. FROM. No adenopathy. Thyroid Normal. No meningeal signs. No neck mass noted. CVS: Normal heart rate and rhythm. Heart sound normal. No murmurs noted. Pulses normal throughout. Respiratory: No respiratory distress. Painless inspiration. Breath sounds normal. No wheezes/rales/rhonchi noted. Chest nontender. No accessory muscle usage noted or decreased air movement noted. Abdomen: Obese, Soft and nontender. Bowel sounds normal in all 4 quadrants. No distention noted. No organomegaly noted. No visible injury noted. Back: No CVA tenderness. Full range of motion noted. Skin: Skin warm and dry. Normal skin color. Normal skin turgor. No rashes/lesions/lacerations noted. Extremities: +3 lower extremity edema bilaterally. Extremities exhibit normal range of motion. Extremities nontender. Neuro: Oriented X 3. Cranial nerve exam: II-XII are grossly intact No motor deficit. No sensory deficit. Reflexes normal. Course Reevaluation(s) Reevaluation #1: Assessment and plan. . 33-year-old male came in for abdominal distention history of ascites and liver cirrhosis patient on the list for liver transplant, attempt for paracentesis with no fluid drainage, patient is on Lasix for diuresis was instructed to follow-up with his GI, and follow his outpatient paracentesis schedule. Time: 06:41 Medical Decision Making Differential Diagnosis Differential Diagnoses: The differential diagnosis associated with the presentation includes (SBP, symptomatic severe ascites, electrolyte abnormality, severe anemia.) Admission/Observation Consideration of admission/observation: Escalation of care including admission/observation considered Lab Data MDM Lab Attestation statement: I reviewed the patient's lab results. 12/14/23 01:24 12/14/23 01:24 Labs: Lab Results 12/14/23 12/14/23 12/14/23 Range/Units 01:24 01:50 04:20 WBC 4.6 L (4.8-10.8) X10*3/uL RBC 2.59 L D (4.60-5.80) X10*6/uL Hgb 9.4 L D (14.0-18.0) g/dl Hct 27.2 L D (42.0-52.0) % MCV 105.0 H (80.0-98.0) fL MCH 36.3 H (27.0-33.0) pg MCHC 34.6 (31.0-36.0) g/dl RDW 15.0 (11.0-16.0) % Plt Count 97 L D (160-400) X10*3/uL MPV 10.6 (9.4-12.4) fL Absolute Nucleated RBC 0.000 (0.0-0.012) X10*3/uL Nucleated RBC % (auto) 0.0 (0.0-0.2) /100WBC PT 24.5 H (11.1-13.3) SEC INR 2.0 H (0.9-1.1) APTT 29.1 (26.0-36.4) SEC Sodium 138 (135-145) mmol/L Potassium 3.0 L (3.3-5.1) mmol/L Chloride 104 (96-108) mmol/L Carbon Dioxide 27 (22-29) mmol/L Anion Gap 10 L (12-20) BUN 9 (9-16) mg/dL Creatinine 0.78 (0.5-1.4) mg/dL Estim Creat Clear Calc 167.4 Estimated GFR > 60 Random Glucose 97 (60-115) mg/dL Calcium 7.5 L D (8.4-10.2) mg/dL Total Bilirubin 10.1 H (0.0-1.0) mg/dL AST 50 H (5-37) U/L ALT 32 (0-40) U/L Alkaline Phosphatase 122 H (39-117) U/L Troponin I High Sens 7.5 D (<3.5-35.0) ng/L Total Protein 5.6 L (6.5-8.0) g/dL Albumin 2.2 L (3.5-5.0) g/dL Urine Color Dark Yellow Urine Appearance Clear Urine pH 6.0 (5.0-9.0) Ur Specific [place] <= 1.005 (1.005-1.025) Urine Protein Negative (Neg-Trace) mg/dL Urine Glucose (UA) Negative (Negative) mg/dL Urine Ketones Negative (Negative) mg/dL Urine Blood Negative (Negative) Urine Nitrite Negative (Negative) Ur Leukocyte Esterase Trace H (Negative) Urine RBC 0-2 (0-2) /HPF Urine WBC 0-5 (0-5) /HPF Ur Squamous Epith Cells 3-5 (0-2) /HPF Urine Bacteria None Seen (None Seen) Hyaline Casts 0-2 (0-2) /LPF Discharge Plan Discharge Clinical Impression: Ascites Patient Disposition: Home, Self-Care Instructions: Ascites (ED) Prescriptions: No Action lidocaine [Lidoderm] 5 % adhesive patch,medicated 1 patch topical DAILY MDD remove after 12 hours PRN (Reason: pain) Qty: 30 0RF Rx Instructions: leave on most painful area for up to 12 hrs cyclobenzaprine 5 mg tablet 5 mg PO Q8H PRN (Reason: pain (scale score 7-10)) 5 Days Qty: 14 0RF lactulose 10 gram/15 mL solution 20 g PO BID 7 Days Qty: 420 0RF docusate sodium [Colace] 100 mg capsule 100 mg PO BID 7 Days Qty: 14 0RF Preparation H(pe,cb) 0.25-88.44 % suppository 1 supp MN BID 7 Days Qty: 24 0RF hydrocortisone-pramoxine 1-1 % foam 1 appl MN QID PRN (Reason: hemorrhoids) Qty: 10 0RF tramadol 50 mg tablet 50 mg PO Q6H PRN (Reason: pain) Qty: 15 0RF hydrocortisone acetate [Anusol-HC] 25 mg suppository 25 mg MN BEDTIME Qty: 12 0RF polyethylene glycol 3350 [Miralax] 17 gram/dose powder 17 g PO DAILY Qty: 510 0RF prednisone 20 mg tablet 20 mg PO DAILY 7 Days Qty: 7 0RF Referrals: Ti Guthrie MD [Primary Care Provider] -
[2023-12-14 04:37] LABS: Prothrombin Time 24.5 SEC (11.1-13.3)
[2023-12-14 04:47] LABS: Partial Thromboplastin Time 29.1 SEC (26.0-36.4)
[2023-12-14 06:17] VITALS: BP 134/83; PULSE 96; RESP 16; TEMP 36.6; O2SAT 100
== END 2023-12-14 07:25 | disposition home or self-care (01) ==
PROVIDERS: Emergency Provider Emergency Medicine; PCP Internal Medicine
DX: R18.8 Other ascites (principal); K74.60 Unspecified cirrhosis of liver; R94.31 Abnormal electrocardiogram [ECG] [EKG]; Z79.899 Other long term (current) drug therapy
CPT/HCPCS: 36415; 80053; 81001; 84484; 85027; 85610; 85730; 93005; 99283; 99284

== ENCOUNTER → 2023-12-14 01:12 | Outpatient (BNV) | payer OTHER, SELFPAY | PROVIDERS: Emergency Provider Emergency Medicine; PCP Internal Medicine; Visit Provider Internal Medicine | DX: R94.31 Abnormal electrocardiogram [ECG] [EKG] (principal) | CPT/HCPCS: 93010 ==